=== PATIENT | female | born 1940 | race Caucasian/White ===

== ENCOUNTER 2017-08-29 16:24 | Emergency (ER) | payer MEDICARE, BC ==
[2017-08-29 16:56] VITALS: BP 136/69
--- NOTE | 2017-08-29 17:42 | RAD ---
INDICATION: RIGHT hand pain post fall. COMPARISON: No relevant prior exams available on the [facility] PACS for comparison. TECHNIQUE: AP, lateral, and oblique views RIGHT hand. REPORT: Oblique fracture through the proximal metaphysis of the fifth metacarpal with one cortex width ulnar dorsal displacement. Negative for additional fracture. Bone density appears decreased throughout. 0.4 cm degenerative cyst at the radial aspect of the lunate. Polyarticular osteoarthritis most marked at the distal interphalangeal joints where it is severe. Diffuse soft tissue swelling. IMPRESSION: #. Nonarticular fracture proximal metaphysis fifth metacarpal. #. Osteoarthritis. #. Decreased bone density.
--- NOTE | 2017-08-29 19:04 | UC ---
Upper Extremity HPI - HPI Summary HPI Summary: Patient is a 76-year-old otherwise healthy female presenting to the with daughter after a fall to her right side with a possible FOOSH injury as well as an abrasion to the right eye. She denies loss of consciousness or headache at this time. She is concerned over right lateral hand pain. There is slight ecchymosis to the right fifth metacarpal. Denies other injuries or concerns. - History of Current Complaint Chief Complaint: UCTrauma Stated Complaint: HAND INJURY Time Seen by Provider: 08/29/17 17:07 Hx Obtained From: Patient Hx Last Menstrual Period: na ?: No Onset/Duration: Sudden Onset Severity Initially: Moderate Severity Currently: Moderate Pain Intensity: 4 Pain Scale Used: Adult Non Verbal Alleviating Factor(s): Nothing Associated Signs And Symptoms: Positive: Swelling, Bruising Related History: Dominant Hand Right - Allergies/Home Medications Allergies/Adverse Reactions: Allergies Allergy/AdvReac Type Severity Reaction Status Date / Time bee venom protein (honey bee) Allergy Severe respriatory Verified 08/29/17 17:02 hydromorphone [From Dilaudid] Allergy Severe Anaphylatic Verified 08/29/17 17:02 Shock pentazocine [From Talwin] Allergy Severe Hallucinati Verified 08/29/17 17:02 ons Sulfa (Sulfonamide Allergy Severe respiratory Verified 08/29/17 17:02 Antibiotics) Adhesive Tape [Silk Tape] Allergy Intermediate Rash Verified 08/29/17 17:02 adhesive tape Allergy Intermediate Rash Verified 08/29/17 17:02 ciprofloxacin [From Cipro] Allergy Intermediate Rash Verified 08/29/17 17:02 codeine Allergy Intermediate Blisters Verified 08/29/17 17:02 latex Allergy Intermediate Rash Verified 08/29/17 17:02 nabumetone [From Relafen] Allergy Intermediate Bleeding Verified 08/29/17 17:02 nicotine Allergy Intermediate unknow Verified 08/29/17 17:02 Opioids - Morphine Analogues Allergy Intermediate Rash Verified 08/29/17 17:02 Penicillins Allergy Intermediate Hives Verified 08/29/17 17:02 nalidixic acid [From NegGram] Allergy Vomiting Verified 08/29/17 17:02 succinylcholine Allergy blood Verified 08/29/17 17:02 [From Anectine] pressure Home Medications: Home Medications Aspirin [Adult Low Dose Aspirin EC] 81 mg PO DAILY WITH MEAL 08/29/17 [History Confirmed 08/29/17] Dicyclomine HCl 10 mg PO BID 08/29/17 [History Confirmed 08/29/17] Estradiol 0.025 MG PATCH (NF) 1 patch 08/29/17 [History] Metoprolol Adler/Hydrochlorothiaz [Metoprolol Succinate ER/H 25-12.5 mg] 12.5 tab PO DAILY WITH MEAL 08/29/17 [History Confirmed 08/29/17] Pantoprazole Sodium 40 mg PO DAILY WITH MEAL 08/29/17 [History Confirmed ] PMH/Surg Hx/FS Hx/Imm Hx Previously Healthy: Yes - Surgical History Surgical History: Yes Surgery Procedure, Year, and Place: angioplasty. partial colon - Family History Known Family History: Positive: Cardiac Disease - Social History Occupation: Unemployed Lives: With Family Alcohol Use: None Substance Use Type: None Smoking Status (MU): Former Smoker Length of Time of Smoking/Using Tobacco: 5 years When Did the Patient Quit Smoking/Using Tobacco: 35 years Review of Systems Constitutional: Negative Skin: Bruising Eyes: Negative Respiratory: Negative Cardiovascular: Negative Motor: Negative Neurovascular: Negative Musculoskeletal: Arthralgia Neurological: Negative Is Patient Immunocompromised?: No All Other Systems Reviewed And Are Negative: Yes Physical Exam Triage Information Reviewed: Yes Appearance: Well-Appearing, Well-Nourished Vital Signs: Initial Vital Signs Temp 98.7 F 08/29/17 16:48 Pulse 63 08/29/17 16:48 Resp 20 08/29/17 16:48 BP 136/69 08/29/17 16:48 Pulse Ox 99 08/29/17 16:48 Vital Signs Reviewed: Yes Eye Exam: Normal Neck: Positive: Supple Respiratory Exam: Normal Respiratory: Positive: Chest non-tender Cardiovascular Exam: Normal Musculoskeletal: Positive: ROM Limited @ - d/t pain to the R MCP joints Psychological: Positive: Normal Response To Family Skin Exam: Normal Procedures - Splinting Right Upper Extremity Hand-Made Type: orthoglass Splint: ulnar - gutter Pre-Proc Neuro Vasc Exam: normal Post-Proc Neuro Vasc Exam: normal Upper Extremity Course/Dx - Course Course Of Treatment: During the course of treatment, the patient's evaluated for right hand pain after a FOOSH injury. X-ray obtained which shows a: IMPRESSION: #. Nonarticular fracture proximal metaphysis fifth metacarpal. #. Osteoarthritis. #. Decreased bone density. Ulnar gutter splint placed. She will follow-up with her orthopedist in [place]. I have also given her follow-up to our orthopedist. Abrasions to the right eyebrow cleansed well and bandage applied. - Differential Dx/Diagnosis Differential Diagnosis/HQI/PQRI: Fracture (Closed), Strain Provider Diagnoses: Fifth metacarpal fx Discharge - Sign-Out/Discharge Documenting (check all that apply): Patient Departure - Discharge Plan Condition: Stable Disposition: HOME Patient Education Materials: Hand Fracture (ED) Referrals: Blas Stanford MD [Primary Care Provider] - Leola Alarcon MD [Medical Doctor] - Additional Instructions: Please follow up with ortho Keep the area dry Splint is temporary until follow up - Billing Disposition and Condition Condition: STABLE Disposition: Home Attestation Statement User Type: Provider - I was available for consult. This patient was seen by the ALYSSA. The patient was not presented to, seen by, or examined by me. -Shahram
== END 2017-08-29 18:26 | disposition home or self-care (01) ==
LOC: UCEAST 16:24
DX: S62.306A Unspecified fracture of fifth metacarpal bone, right hand, initial encounter for closed fracture (principal); S00.211A Abrasion of right eyelid and periocular area, initial encounter; Z91.030 Bee allergy status; Z88.5 Allergy status to narcotic agent; Z88.2 Allergy status to sulfonamides; Z91.09 Other allergy status, other than to drugs and biological substances; Z88.1 Allergy status to other antibiotic agents; Z88.8 Allergy status to other drugs, medicaments and biological substances; Z91.040 Latex allergy status; Z88.6 Allergy status to analgesic agent; Z95.5 Presence of coronary angioplasty implant and graft; Z87.891 Personal history of nicotine dependence; Z79.4 Long term (current) use of insulin; W19.XXXA Unspecified fall, initial encounter; Y92.9 Unspecified place or not applicable
CPT/HCPCS: 99212; G0463

== ENCOUNTER 2017-09-18 11:53 | Day surgery (SDC) | payer MEDICARE, BC ==
[~2017-09-18 11:53] MED LIST: Acetaminophen TAB* 325 MG PO PRN; Buffered Lidocaine 0.9% SYRIN* 5 ML/SYR SYRINGE INTRADERM ONE
[2017-09-18] MEDS ORDERED: Midazolam* 1 MG/ML 2 ML VIAL (2 MG) ONE (13:29)
[2017-09-18 14:16] VITALS: BP 121/56
[2017-09-18] MEDS ORDERED: Povidone Iodine 5% OPTH* 30 ML BTL ONE (14:31)
[2017-09-18] MEDS ORDERED: Phenylephrine 2.5% OPTH.SOL* 2 ML BTL ONE (14:31)
[2017-09-18] MEDS ORDERED: Lidocaine 1%* 5 ML VIAL ONE (14:31)
[2017-09-18] MEDS ORDERED: acetaZOLAMIDE TAB* 250 MG ONE (14:31)
[2017-09-18] MEDS ORDERED: Proparacaine 0.5% OPHTH.SOL* 15 ML BTL ONE (14:31)
[2017-09-18] MEDS ORDERED: Ketorolac 0.5% OPHTH (NF) 0.5 % 5 ML BTL ONE (14:31)
[2017-09-18] MEDS ORDERED: Neomycin/Polymy/Dex OPTH.SUSP* MAXITROL 0.1% 5 ML ONE (14:31)
[2017-09-18] MEDS ORDERED: Lidocaine 2% EPI 1:200000 MPF*10-20 ML VIAL ONE (14:31)
[2017-09-18] MEDS ORDERED: Cyclopentolate 1% OPTH.SOL* 2 ML BTL ONE (14:31)
--- NOTE | 2017-09-18 16:30 | OP ---
DATE OF OPERATION: 09/18/2017 - [facility] DATE OF : 1940. SURGEON: Ankur Rider M.D. PREOPERATIVE DIAGNOSIS: Cataract right eye. POSTOPERATIVE DIAGNOSIS: Cataract right eye. OPERATIVE PROCEDURE: Extracapsular cataract extraction with intraocular lens implant right eye. DESCRIPTION OF PROCEDURE: The patient was brought to the operating room after being given 1/2% Alcaine with epinephrine drops in the preoperative area. The eye was prepped and draped in the usual sterile fashion. Sterile drape and eyelid speculum were placed. Again, topical 1/2% Alcaine with epinephrine was given. A paracentesis incision was made at the 9 o'clock position with the No.75 blade. Clear cornea incision 2.2 x 2.2-mm was created at the 12 o'clock position starting at the anterior limbus using the 2.2-mm keratome. The anterior chamber was irrigated with 0.4 mL of 1% non-preservative intracameral lidocaine and filled with DisCoVisc. A capsulorrhexis was completed using the cystotome and the Utrata forceps. Hydrodissection was performed with balanced salt solution. The lens nucleus was removed with the Phacoemulsification handpiece without incident. Cortex was removed with the irrigation-aspiration handpiece. The capsular bag was re-inflated using DisCoVisc and an [id number] implant was inserted with the shooter. The irrigation-aspiration handpiece was used to remove all residual DisCoVisc. The eye was refilled with balanced salt solution and the wound checked and found to be watertight. Topical Maxitrol drops were given. [id number]/[facility] #: [id number] [facility] CENTERNoé
== END 2017-09-18 14:24 | disposition home or self-care (01) ==
LOC: OREAST 11:53
PROVIDERS: ATTEND Specialist
DX: H25.811 Combined forms of age-related cataract, right eye (principal); Z87.891 Personal history of nicotine dependence; Z88.0 Allergy status to penicillin; Z88.1 Allergy status to other antibiotic agents; K21.9 Gastro-esophageal reflux disease without esophagitis; Z85.828 Personal history of other malignant neoplasm of skin; I25.10 Atherosclerotic heart disease of native coronary artery without angina pectoris; J45.909 Unspecified asthma, uncomplicated; N18.9 Chronic kidney disease, unspecified
CPT/HCPCS: A9270-GY; J2250; V2632

== ENCOUNTER 2017-09-25 10:06 | Day surgery (SDC) | payer MEDICARE, BC ==
[~2017-09-25 10:06] MED LIST changes: +Midazolam* 1 MG/ML 5 ML VIAL (5 MG) ONE
[2017-09-25 12:15] VITALS: BP 113/79
[2017-09-25] MEDS ORDERED: Lidocaine 2% EPI 1:200000 MPF*10-20 ML VIAL ONE (14:31)
[2017-09-25] MEDS ORDERED: Lidocaine 1%* 5 ML VIAL ONE (14:31)
[2017-09-25] MEDS ORDERED: Cyclopentolate 1% OPTH.SOL* 2 ML BTL ONE (14:31)
[2017-09-25] MEDS ORDERED: Ketorolac 0.5% OPHTH (NF) 0.5 % 5 ML BTL ONE (14:32)
[2017-09-25] MEDS ORDERED: Phenylephrine 2.5% OPTH.SOL* 2 ML BTL ONE (14:32)
[2017-09-25] MEDS ORDERED: Proparacaine 0.5% OPHTH.SOL* 15 ML BTL ONE (14:32)
[2017-09-25] MEDS ORDERED: Neomycin/Polymy/Dex OPTH.SUSP* MAXITROL 0.1% 5 ML ONE (14:32)
[2017-09-25] MEDS ORDERED: Povidone Iodine 5% OPTH* 30 ML BTL ONE (14:32)
--- NOTE | 2017-09-26 10:34 | OP ---
OPERATIVE NOTE: DATE OF OPERATION: 09/25/17 - [facility] DATE OF : [birth year] SURGEON: Ankur Rider M.D. PREOPERATIVE DIAGNOSIS: Cataract left eye. POSTOPERATIVE DIAGNOSIS: Cataract left eye OPERATIVE PROCEDURE: Extracapsular cataract extraction with intraocular lens implant left eye. PROCEDURE: The patient was brought to the operating room after being given 1/2 % Alcaine with epinephrine drops in the preoperative area. The eye was prepped and draped in the usual sterile fashion. Sterile drape and eyelid speculum were placed. Again, topical 1/2% Alcaine with epinephrine was given. A paracentesis incision was made at the 3 o'clock position with the No.75 blade. Clear cornea incision 2.2 x 2.2-mm was created at the 6 o'clock position starting at the anterior limbus using the 2.2-mm keratome. The anterior chamber was irrigated with 0.4 mL of 1% non-preservative intracameral lidocaine and filled with DisCoVisc. A capsulorrhexis was completed using the cystotome and the Utrata forceps. Hydrodissection was performed with balanced salt solution. The lens nucleus was removed with the Phacoemulsification handpiece without incident. Cortex was removed with the irrigation-aspiration handpiece. The capsular bag was re-inflated using DisCoVisc and an [id number] implant was inserted with the shooter. The irrigation-aspiration handpiece was used to remove all residual DisCoVisc. The eye was refilled with balanced salt solution and the wound checked and found to be watertight. Topical Maxitrol drops were given. [id number]/[facility] #: [id number] MTDD
== END 2017-09-25 12:19 | disposition home or self-care (01) ==
LOC: OREAST 10:06
PROVIDERS: ATTEND Specialist
DX: H25.812 Combined forms of age-related cataract, left eye (principal); Z85.828 Personal history of other malignant neoplasm of skin; Z87.891 Personal history of nicotine dependence; J45.909 Unspecified asthma, uncomplicated; I25.10 Atherosclerotic heart disease of native coronary artery without angina pectoris; K21.9 Gastro-esophageal reflux disease without esophagitis
CPT/HCPCS: A9270-GY; J2250; V2632

== ENCOUNTER 2017-11-17 10:31 | Inpatient (IN) | payer MEDICARE, BC ==
[2017-11-17] MEDS ORDERED: NS 0.9% 1000 ML* 1,000 ML IV ONE (10:49)
--- NOTE | 2017-11-17 11:25 | ED ---
Dizziness - HPI Summary HPI Summary: The pt is a 76 y.o female presenting to the [facility] with a chief complaint of dizziness. The pt states that she was unable to get out of bed and sit upright without having the symptoms of dizziness occur. The dizziness is not reported as room spinning but more as a loss of control. Onset of the symptoms was 1400 yesterday. She sates that she is currently unable to ambulate to due the severity of the dizziness. Pt also reports of MOTT, fatigue and nausea. Pt denies vision symptoms. The patient rates the pain as 0/10 in severity. Symptoms alleviated by nothing. Symptoms aggravated by position and movement. Allergies noted and reported. - History Of Current Complaint Chief Complaint: EDDizziness Stated Complaint: DIZZINESS Time Seen by Provider: 11/17/17 10:50 Hx Obtained From: Patient Onset/Duration: Still Present Severity Currently: None Character: Dizzy - "Loss of control" Aggravating Factor(s): Supine To Erect, Other - Movement Alleviating Factor(s): Nothing Associated Signs And Symptoms: Positive: Nausea, Other: - MOTT and fatigue. Negative: Visual Changes - Allergies/Home Medications Allergies/Adverse Reactions: Allergies Allergy/AdvReac Type Severity Reaction Status Date / Time bee venom protein (honey bee) Allergy Severe Difficulty Verified 11/17/17 10:45 Breathing betamethasone Allergy Severe Blisters Verified 11/17/17 10:45 [From Diprolene] cefdinir Allergy Severe Unknown Verified 11/17/17 10:45 Reaction Details codeine Allergy Severe Blisters Verified 11/17/17 10:45 hydromorphone [From Dilaudid] Allergy Severe Anaphylatic Verified 11/17/17 10:45 Shock pentazocine [From Talwin] Allergy Severe Hallucinati Verified 11/17/17 10:45 ons propylene glycol Allergy Severe Blisters Verified 11/17/17 10:45 [From Diprolene] Sulfa (Sulfonamide Allergy Severe Hives Verified 11/17/17 10:45 Antibiotics) Adhesive Tape [Silk Tape] Allergy Intermediate Rash Verified 11/17/17 10:45 adhesive tape Allergy Intermediate Rash Verified 11/17/17 10:45 ciprofloxacin [From Cipro] Allergy Intermediate Rash Verified 11/17/17 10:45 erythromycin base Allergy Intermediate See Comment Verified 11/17/17 10:45 latex Allergy Intermediate Rash Verified 11/17/17 10:45 nabumetone [From Relafen] Allergy Intermediate Bleeding Verified 11/17/17 10:45 nicotine Allergy Intermediate Unknown Verified 11/17/17 10:45 Reaction Details Opioids - Morphine Analogues Allergy Intermediate Rash Verified 11/17/17 10:45 Penicillins Allergy Intermediate Hives Verified 11/17/17 10:45 succinylcholine Allergy Intermediate blood Verified 11/17/17 10:45 [From Anectine] pressure drop nalidixic acid [From NegGram] AdvReac Severe Vomiting Verified 11/17/17 10:45 ondansetron [From Zofran] AdvReac Severe Nausea And Verified 11/17/17 10:45 Vomiting meclizine AdvReac Intermediate Nausea Verified 11/17/17 10:45 [id number]-Afx-Fnp Reductase AdvReac GI Upset Verified 11/17/17 10:45 Inhibitor Home Medications: Home Medications EPINEPHrine [Epipen 2-Stevie] 0.3 mg IM ONCE PRN 11/17/17 [History Confirmed ] PMH/Surg Hx/FS Hx/Imm Hx Endocrine/Hematology History: Denies: Hx Diabetes, Hx Thyroid Disease Cardiovascular History: Reports: Hx Coronary Artery Disease - Angioplasty-years ago-[place], Hx Hypertension Denies: Other Cardiovascular Problems/Disorders Respiratory History: Denies: Hx Asthma, Hx Chronic Obstructive Pulmonary Disease (COPD), Other Respiratory Problems/Disorders GI History: Reports: Hx Gastroesophageal Reflux Disease, Hx Irritable Bowel, Hx Ulcer - history duodenal ulcers, Other GI Disorders - esophageal rings stretched , diverticulosis, history of diverticulitis Denies: Hx Hiatal Hernia History: Reports: Hx Kidney Infection - had prior to partial kidney removal- , Other Problems/Disorders - 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., UTIs Musculoskeletal History: Reports: Hx Arthritis - thumbs, Hx Bursitis - history of, none recent, Other Musculoskeletal History - Fell 08/28-fractured right hand- hard brace on Sensory History: Reports: Hx Cataracts - Bilateral, Hx Contacts or Glasses - glasses Denies: Hx Glaucoma, Hx Hearing Aid Opthamlomology History: Reports: Hx Cataracts - Bilateral, Hx Contacts or Glasses - glasses Denies: Hx Glaucoma Neurological History: Reports: Hx Migraine - history of since hysterectomy, none recent Denies: Other Neuro Impairments/Disorders - Surgical History Surgery Procedure, Year, and Place: Angioplasty-[place] 2007. Partial colectomy -[id number]. Partial Left Kidney removed-1970s Hx Anesthesia Reactions: Yes - versed, demerol and lidocaine ok per pt Infectious Disease History: No Infectious Disease History: Denies: Hx Hepatitis, Hx Human Immunodeficiency Virus (HIV), Traveled Outside the [place] in Last 30 Days - Family History Known Family History: Positive: Cardiac Disease Family History: Cataract - Mother - Social History Alcohol Use: None Substance Use Type: Reports: None Smoking Status (MU): Former Smoker Length of Time of Smoking/Using Tobacco: 5 years Review of Systems Positive: Fatigue Eyes: Negative ENT: Negative Cardiovascular: Negative Respiratory: Negative Positive: Nausea Genitourinary: Negative Musculoskeletal: Negative Skin: Negative Neurological: Other - Dizziness Positive: Headache Psychological: Normal All Other Systems Reviewed And Are Negative: Yes Physical Exam - Summary Physical Exam Summary: Appearance: The patient is well-nourished in no acute distress and in no acute pain. Skin: The skin is warm and dry and skin color reflects adequate perfusion. HEENT: The head is normocephalic and atraumatic. The pupils are equal and reactive. The conjunctivae are clear and without drainage. Nares are patent and without drainage. Mouth reveals moist mucous membranes and the throat is without erythema and exudate. The external ears are intact. The ear canals are patent and without drainage. The tympanic membranes are intact. Neck: The neck is supple with full range of motion and non-tender. There are no carotid bruits. There is no neck vein distension. Respiratory: Chest is non-tender. Lungs are clear to auscultation and breath sounds are symmetrical and equal. Cardiovascular: Heart is regular rate and rhythm. There is no murmur or rub auscultated. There is no peripheral edema and pulses are symmetrical and equal. Abdomen: The abdomen is soft and non-tender. There are normal bowel sounds heard in all four quadrants and there is no organomegaly palpated. Musculoskeletal: There is no back tenderness noted. Extremities are non-tender with full range of motion. There is good capillary refill. There is no peripheral edema or calf tenderness elicited. Neurological: Patient is alert and oriented to person, place and time. The patient has symmetrical motor strength in all four extremities. Cranial nerves are grossly intact. Deep tendon reflexes are symmetrical and equal in all four extremities. No nystagmus; She had mild high lateral dysmetria. Psychiatric: The patient has an appropriate affect and does not exhibit any anxiety or depression Triage Information Reviewed: Yes Vital Signs On Initial Exam: Initial Vitals Temp Pulse Resp BP Pulse Ox 97.0 F 56 17 169/76 98 11/17/17 10:34 11/17/17 10:34 11/17/17 10:34 11/17/17 10:34 11/17/17 10:34 Vital Signs Reviewed: Yes Diagnostics - Vital Signs Vital Signs Temp Pulse Resp BP Pulse Ox 11/17/17 10:34 97.0 F 56 17 169/76 98 - Laboratory Result Diagrams: 11/17/17 11:41 11/17/17 11:41 Lab Statement: Any lab studies that have been ordered have been reviewed, and results considered in the medical decision making process. - CT Head CTA CT Interpretation Completed By: Radiologist - Head CTA reveals: NECK ANGIOGRAM IMPRESSION: Negative for pathology of the carotid or vertebral arteries. HEAD ANGIOGRAM IMPRESSION: Normal variation without pathologic finding of the central intracranial arterial vasculature. As per radiologist report. The ED Physician has reviewed this radiology report. - EKG 1053 Cardiac Rate: Bradycardia - 50 bpm EKG Interpretation: Normal ST, No ectopy, No STEMI at 1053 Dizzy Course/Dx - Course Course Of Treatment: Ms. Michaels presented with about 21 hours of dizziness and being off balance. She she specifically says the room is not spinning but she just doesn't trust herself walking and and she is concerned because her arms don 't seem to follow her commands well either. She has no tinnitus. She has no headache. She has no visual changes. On exam she has no nystagmus. She has hesitancy when performing [id number] and [id number]. Initial labs, CT of the brain and CTA of the head and neck are negative. I spoke with Dr. Henry who recommended admission for further workup. She will need an MRI scan. - Diagnoses Provider Diagnoses: CVA (cerebral vascular accident) Discharge - Sign-Out/Discharge Documenting (check all that apply): Patient Departure - Admission to [facility] [place] - Discharge Plan Condition: Stable Disposition: ADMITTED TO [facility] - Billing Disposition and Condition Condition: STABLE Disposition: Admitted to [facility] - Attestation Statements Document Initiated by Scribe: Yes Documenting Scribe: Nazario Bourne Provider For Whom Scribe is Documenting (Include Credential): Dr. Magan De La Cruz Scribe Attestation: I, Nazario Bourne, scribed for Dr. Magan De La Cruz on 11/17/17 at 1859. Scribe Documentation Reviewed: Yes Provider Attestation: The documentation as recorded by the Nazario crain accurately reflects the service I personally performed and the decisions made by me, Dr. Magan De La Cruz
[2017-11-17 12:00] LABS: ABS Basophils 0 10^3/ul (0-0.2); ABS Eosinophils 0 10^3/ul (0-0.6); ABS Lymphocytes 0.8 10^3/ul (1.0-4.8); ABS Monocytes 0.3 10^3/ul (0-0.8); ABS Neutrophils 4.9 10^3/ul (1.5-7.7); ABS Nucleated RBC 0 10^3/ul; Eosinophil % 0.3 % (0-6); Hematocrit 40 % (35-47); Hemoglobin 13.4 g/dl (12.0-16.0); Lymphocyte % 12.7 % (25-47); Mean Corpuscular HGB Conc 34 g/dl (31-36); Mean Corpuscular Hemoglobin 31 pg (27-31); Mean Corpuscular Volume 92 fL (80-97); Mean Platelet Volume 7.9 um3 (7.4-10.4); Nucleated Red Blood Cells % 0; Platelet Count 182 10^3/ul (150-450); Red Blood Count 4.28 10^6/ul (4.00-5.40); Red Cell Distribution Width 14 % (10.5-15)
[2017-11-17 12:10] LABS: EGFR Non-African American 74.4 (>60)
[2017-11-17] MEDS ORDERED: Iodixanol* (CONTRAST) 320 MG/ML 100 ML SDV IV ONE (12:30)
[2017-11-17 13:18] LABS: Urine Appearance Clear; Urine Blood Negative (Negative); Urine Color Yellow; Urine Ketones Trace (Negative); Urine Protein Negative (Negative); Urine Urobilinogen Negative (Negative)
--- NOTE | 2017-11-17 14:07 | RAD ---
INDICATION: Vertigo. COMPARISON: No relevant prior exams available on the [facility] PACS for comparison. TECHNIQUE: Multidetector CT images were obtained from the aortic arch to the vertex of the head with 80 mL Visipaque 320 IV contrast. Arterial phase of enhancement. Multiplanar reformation including maximum intensity projection. 3-D arterial volume rendering. Stenosis estimations based on denominator of distal arterial diameter. NECK ANGIOGRAM REPORT: Mild bilateral apical pleural-parenchymal scarring noted. Normal variant common origin of the RIGHT brachiocephalic and LEFT common carotid arteries from the aortic arch. Negative for aortic arch branch vessel ostial stenosis. No atherosclerotic plaque evident at the carotid arteries. Negative for stenosis, occlusion, dissection, or aneurysm of the common or internal carotid arteries. Patent codominant vertebral arteries without abnormality. Unremarkable cervical spine. NECK ANGIOGRAM IMPRESSION: Negative for pathology of the carotid or vertebral arteries. HEAD ANGIOGRAM REPORT: Unremarkable patent intracranial internal carotid arteries and M1 and M2 segments of the middle cerebral arteries as well as the M1 and M2 segments of the anterior cerebral arteries. No definitive anterior communicating artery visualized. Unremarkable basilar artery and cerebellar artery origins. Patent posterior cerebral arteries are supplied primarily by the posterior circulation. Small patent RIGHT posterior communicating artery visualized. The LEFT communicating artery is hypoplastic or absent, a normal variant. No intracranial aneurysms visualized. No vascular malformation evident. Normal opacification of the dominant dural venous sinuses. HEAD ANGIOGRAM IMPRESSION: Normal variation without pathologic finding of the central intracranial arterial vasculature. CPT II: CPT II Codes: 3100F
[2017-11-17] MEDS ORDERED: Diazepam TAB(*) 5 MG PO PRN (16:21)
[2017-11-17] MEDS: Metoprolol Tartrate TAB* 25 MG PO SCH (21:23)
[2017-11-17] MEDS: Dicyclomine CAP* 10 MG PO SCH (21:23)
[2017-11-17] MEDS: Heparin VIAL(*) 5000 UNITS/ML VIAL (FIVE THOUSAND) SUBCUT SCH (21:30)
--- NOTE | 2017-11-17 22:22 | HP ---
CC: Dr. Stanford; Dr. Zeng * HISTORY AND PHYSICAL: DATE OF ADMISSION: 11/17/17 PRIMARY CARE PROVIDER: Dr. Stanford. DUCTFIXING PLUMBER: Dr. Zeng. CHIEF COMPLAINT: Dizziness. HISTORY OF PRESENT ILLNESS: Ms. Michaels is a 76-year-old female who has a history of coronary artery disease, migraine, asthma, psoriasis, GERD and IBS, who presented to the emergency room with complaints of severe dizziness. The patient states that yesterday afternoon she began to feel slight sensation of dizziness. She thought maybe it was related to allergies and sinus pressure. She took a Tylenol Sinus and went upstairs to lie down. She states that she took a nap. When her was watching a baseball game last evening, she went upstairs to watch movies in bed. She states she fell asleep. When she woke up on the morning of 11/17/17 and tried to get out of bed around 8:30 to 9 o'clock in the morning, she noted severe unsteadiness. She states that when she got upright she felt as if she could not place her arms in a correct position nor did she feel like she had control over her body. She states that she essentially fell backwards onto the bed. She tried to get up again and this time with her ; however, still was unable to do so and at that point he called the ambulance for transportation to the emergency room. The patient states that she has never had anything like this in the past. She denies any headache. She denies any sudden change of vision. PAST MEDICAL HISTORY: 1. OA. 2. Coronary artery disease, status post angioplasty x2. 3. Migraine. 4. Asthma. 5. Psoriasis. 6. GERD. 7. IBS. PAST SURGICAL HISTORY: 1. Bartholin cyst excision. 2. Left partial nephrectomy. 3. Bilateral cataract extraction. 4. Bilateral carpal tunnel release. 5. Hysterectomy. 6. Partial colectomy. MEDICATIONS: 1. Protonix 40 mg p.o. daily. 2. Metoprolol tartrate 12.5 mg p.o. b.i.d. (the patient was supposed to switch to diltiazem 30 mg p.o. b.i.d., though she states her stomach was not ready for this change). 3. Estradiol 0.025 mg patch topically weekly. 4. Dicyclomine 10 mg p.o. b.i.d. 5. Aspirin 81 mg p.o. daily. 6. EpiPen 0.3 mg IM once as needed for allergic reaction. ALLERGIES: 1. BEES. 2. BETAMETHASONE. 3. CEFDINIR. 4. CODEINE. 5. DILAUDID. 6. TALWIN. 7. DIPROLENE. 8. SULFA. 9. ADHESIVE TAPE. 10. CIPRO. 11. ERYTHROMYCIN. 12. LATEX. 13. NABUMETONE. 14. NICOTINE. 15. OPIOIDS. 16. PENICILLIN. 17. SUCCINYLCHOLINE. 18. NEGGRAM. 19. ZOFRAN. 20. MECLIZINE. 21. STATIN. FAMILY HISTORY: Mom at the age of 70 of CHF. Dad of unknown causes, she in fact does not know anything about his medical history. SOCIAL HISTORY: The patient is a former smoker, she quit in 1984. She drinks alcohol rarely. 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 She is . She has 2 children. Her , Ankur, is her healthcare proxy. REVIEW OF SYSTEMS: A complete 11-system review of systems was obtained. Pertinent positives and negatives are as per HPI and in addition the patient does admit to chronic nausea that was no worse with the severe unsteadiness/ dizziness. She also admits to frequent diarrhea related to her IBS. The rest of the review of systems is negative. PHYSICAL EXAMINATION GENERAL: The patient is a well-developed, elderly female, seen lying flat on her back in the stretcher, in no acute distress. VITAL SIGNS: Blood pressure 145/76, pulse 53, respirations 14, temp 97.0, O2 sat 99% on room air. HEENT: Pupils are equal and round. There is evidence of prior cataract extraction. Extraocular muscles are intact. There is no nystagmus noted. Movement of the eyes while lying in a completely flat on her back position elicits no dizziness. Oropharynx is clear. Oral mucosa is moist. NECK: There is no submandibular, cervical, or supraclavicular adenopathy. Thyroid is not enlarged. No thyroid nodules noted. PULMONARY: Lungs are clear to auscultation bilaterally. CARDIAC: Normal S1, S2. Regular rate and rhythm. I do not appreciate any murmurs. There is no lower extremity edema. ABDOMEN: Bowel sounds are present. Abdomen is soft, nontender, nondistended. MUSCULOSKELETAL: There is no cyanosis or clubbing of the digits. There is full active range of motion of all 4 extremities. NEURO: In a flat on her back position, the patient has normal 5/5 strength in both upper and lower extremities. Sensation is intact to light touch throughout. Heel- rivera testing is smooth and symmetric bilaterally. With the head of the bed raised at 45 degrees, the patient does complain of dizziness. [id number] testing is intact and without any past pointing. When I lean the patient forward to listen to her back, her entire body sways, she ends up leaning towards the left and resting her head on my arm due to being unsteady. PSYCH: The patient is alert. She is oriented x3. Affect appears appropriate. SKIN: Warm and dry. There are no rashes. DIAGNOSTIC STUDIES/LAB DATA: WBC 6.0, hemoglobin 13.4, hematocrit 40, platelets 182. INR 1.0. Sodium 142, potassium 3.6, chloride 110, CO2 24, BUN 11, creatinine 0.76, glucose 91, lactic acid 1, calcium 8.4, magnesium 1.7. Bilirubin 0.7, AST 16, ALT 11, alk phos 54. Troponin 0. CRP 2.36. Albumin 3.8. TSH 0.68. Urinalysis reveals specific gravity of 1.010 and otherwise negative for signs of infection. EKG reveals sinus bradycardia with PAC and no acute ST-T wave abnormalities. CTA head reveals normal variation without pathologic finding of the central intracranial arterial vasculature. CTA neck negative for pathology of the carotid or vertebral arteries. ASSESSMENT AND PLAN: Ms. Michaels is a 76-year-old female, who presents today with complaints of a sudden of severe dizziness, which was described more as unsteadiness when in a semi-upright position. 1. Dizziness. My suspicion is this is not a cerebrovascular accident as the patient is asymptomatic while lying completely flat, but becomes symptomatic with the head somewhat elevated or completely upright. I question benign positional vertigo versus a vestibular neuritis. The patient will have p.r.n. Valium for dizziness. MRI has been ordered for tomorrow to formally rule out stroke. If the patient is still symptomatic tomorrow, consultation with Neurology is recommended. 3. Coronary artery disease. The patient will be maintained on her usual dose of aspirin and metoprolol. 4. Irritable bowel syndrome. Continue dicyclomine. 5. DVT prophylaxis: According to the Adult Thrombosis Prophylaxis Risk Factor Assessment Guide, the patient has a total risk factor score of 2 making her moderate risk. She will be placed on heparin 5000 units subcutaneous q.12 hours. 6. Code status is full. TIME SPENT: Sixty-five minutes was spent admitting this patient. [id number]/CPS #: [id number] GAR[facility]
[2017-11-18] MEDS: Dicyclomine CAP* 10 MG PO SCH ×2 (09:38→20:44)
[2017-11-18] MEDS: Omeprazole CAP* 20 MG PO SCH (09:39)
[2017-11-18] MEDS: Heparin VIAL(*) 5000 UNITS/ML VIAL (FIVE THOUSAND) SUBCUT SCH ×2 (09:39→20:44)
[2017-11-18] MEDS: Aspirin EC TAB* 81 MG TAB.EC PO SCH (09:39)
[2017-11-18] MEDS ORDERED: Magnesium Sulfate IV* 3 GM in NS 0.9% 100 ML* 100 ML IVPB ONE (11:00)
[2017-11-18] MEDS ORDERED: PROCHLORPERAZINE INJ 5 MG/ML 2 ML VIAL IV PRN (11:21)
[2017-11-18] MEDS: Metoprolol Tartrate TAB* 25 MG PO SCH (11:39)
--- NOTE | 2017-11-18 14:19 | RAD ---
HISTORY: severe dizziness, ataxia COMPARISONS: November 17, 2017 CT TECHNIQUE: The following sequences were obtained of the head: Sagittal T1-weighted images, axial T2-weighted images, axial FLAIR images, axial susceptibility weighted images, axial T1-weighted images. Additionally, axial diffusion-weighted images were obtained with calculated apparent diffusion coefficients. FINDINGS: HEMORRHAGE/INFARCT: There is no hemorrhage or acute infarct. MASSES/SHIFT: There is no mass or shift. EXTRA-AXIAL SPACES/MENINGES: There are no extra-axial fluid collections. SULCI AND VENTRICLES: The sulci and ventricles are normal in size and position for the patient's stated age. CEREBRUM: There are no focal parenchymal abnormalities. BRAINSTEM: There are no focal parenchymal abnormalities. CEREBELLUM: There are no focal parenchymal abnormalities. The cerebellar tonsils are normal in size and position. SELLA: The sella is normal. PINEAL: The pineal region is clear. CP ANGLE/TEMPORAL BONES: The labyrinthine structures are grossly normal. VESSELS: Normal flow-voids are noted within the visualized vertebral vasculature. DIFFUSION ABNORMALITIES: There are no diffusion abnormalities. PARANASAL SINUSES/MASTOIDS: The paranasal sinuses are clear. ORBITS: The orbits are unremarkable. BONES AND SOFT TISSUE: No bone or soft tissue abnormalities are noted. OTHER: None IMPRESSION: UNREMARKABLE MRI OF THE BRAIN. THERE IS NO RESTRICTED DIFFUSION TO SUGGEST ACUTE INFARCT.
--- NOTE | 2017-11-18 17:06 | PN ---
Subjective Date of Service: 11/18/17 Interval History: Patient is feeling persistently mildly dizzy at rest and has not noticed any improvement in dizziness when sitting up. Patient has been having intermittent nausea and headache with sitting up. Patient has chronic gastrointestinal upset which has been persisting. Patient denies CP, SOB, dysuria, palpitations, or other pain. Patient conveyed that she had a fall within the last few months head trauma without any prodromal symptoms. Patient has been having a recent stuffy nose and sinus pressure which she attributed to allergies. Family History: Unchanged from Admission Social History: Unchanged from Admission Past Medical History: Unchanged from Admission Objective Active Medications: Aspirin (Aspirin Ec Tab*) 81 mg PO QAM [facility] Last Admin: 11/18/17 09:39 Dose: 81 mg Diazepam (Valium Tab(*)) 2.5 mg PO Q8H PRN PRN Reason: dizziness Dicyclomine HCl (Bentyl Cap*) 10 mg PO BID [facility] Last Admin: 11/18/17 09:38 Dose: 10 mg Heparin Sodium (Porcine) (Heparin Vial(*)) 5,000 units SUBCUT Q12HR [facility] Last Admin: 11/18/17 09:39 Dose: 5,000 units Sodium Chloride (Ns 0.9% 1000 Ml*) 1,000 mls @ 100 mls/hr IV PER RATE [facility] Metoprolol Tartrate (Lopressor Tab*) 12.5 mg PO DAILY [facility] Omeprazole (Prilosec Cap*) 20 mg PO QAM [facility] Last Admin: 11/18/17 09:39 Dose: Not Given Prochlorperazine Edisylate (Compazine Inj*) 5 mg IV Q6H PRN PRN Reason: NAUSEA/VOMITING Vital Signs - 8 hr 11/18/17 11/18/17 11/18/17 09:38 11:15 16:32 Temperature 97.9 F Pulse Rate 62 61 Respiratory 16 18 Rate Blood Pressure 127/59 150/81 (mmHg) O2 Sat by Pulse 97 Oximetry 11/18/17 16:33 Temperature Pulse Rate 82 Respiratory Rate Blood Pressure 132/73 (mmHg) O2 Sat by Pulse Oximetry Oxygen Devices in Use Now: None Appearance: Patient is a 76yo female who appears younger than stated age and is sitting in the bed in [facility]. Eyes: No Scleral Icterus, PERRLA Ears/Nose/Mouth/Throat: NL Teeth, Lips, Gums, Clear Oropharnyx, Mucous Membranes Moist Neck: NL Appearance and Movements; NL JVP, Trachea Midline Respiratory: Symmetrical Chest Expansion and Respiratory Effort, Clear to Auscultation Cardiovascular: NL Sounds; No Murmurs; No JVD, RRR, No Edema Abdominal: NL Sounds; No Tenderness; No Distention, No Hepatosplenomegaly Lymphatic: No Cervical Adenopathy Extremities: No Edema, No Clubbing, Cyanosis Skin: No Rash or Ulcers, No Nodules or Sclerosis Neurological: Alert and Oriented x 3, NL Sensation, NL Muscle Strength and Tone , - - CN II-XII intact. Cerebellar testing performed without difficulty. No nystagmus on sitting up. Reflexes 2+ in biceps and pateller area. 1+ in achilles areas. Result Diagrams: 11/17/17 11:41 11/17/17 11:41 Assess/Plan/Problems-Billing Assessment: Patient is a 76yo female with a PMH for migraines, CAD, and recent syncope who prevents with severe positional dizziness to the point she is unable to walk with associated severe headache. - Patient Problems (1) Acute severe vertigo Current Visit: Yes Status: Acute Code(s): R42 - DIZZINESS AND GIDDINESS SNOMED Code(s): 460100989 Comment: - Severe positional vertigo present at a low level at all times but much worse with sitting and standing - Associated migraine which is consistent with previous history of migraine. - Recent URI/Allergy symptoms - MRI brain negative, CTA head and neck negative - Differential includes BPPV, Vestibular neuronitis, Vestibular migraine - Neuro consult pending and appreciated. - Slightly orthostatic, will decrease metoprolol and trial additional fluid - Echo to assess cardiac function as possible cause of vertigo (2) Migraine Current Visit: Yes Status: Acute Code(s): G43.909 - MIGRAINE, UNSP, NOT INTRACTABLE, WITHOUT STATUS MIGRAINOSUS SNOMED Code(s): 42826785 Comment: - Severe headache consistent with previous migraine - Multiple allergies, has had response to demerol and compazine before - Will trial this combination (3) IBS (irritable bowel syndrome) Current Visit: Yes Status: Acute Comment: - Persistent abdominal discomfort and nausea. - Continue Bentyl (4) Syncope Current Visit: Yes Status: Acute Code(s): R55 - SYNCOPE AND COLLAPSE SNOMED Code(s): 073705896 Comment: - Recent Syncope with no prodrome - No evalutation at time - Echo, Lipid profile and homeglobin A1c - Known CAD managed medically - Possible arrhythmia, continue tele and consider stress test inpatient or outpatient. (5) DVT prophylaxis Current Visit: Yes Status: Acute Code(s): ZOW4401 - SNOMED Code(s): 310243858 Comment: - Heparin SubQ (6) Full code status Current Visit: Yes Status: Acute Code(s): Z78.9 - OTHER SPECIFIED HEALTH STATUS SNOMED Code(s): 855022305 Status and Disposition: Inpatient.
[2017-11-18] MEDS ORDERED: Meperidine SYRINGE* 50 MG/ML IV ONE (17:11)
[2017-11-18] MEDS ORDERED: MEPERIDINE 50 MG PO ONE (17:17)
--- NOTE | 2017-11-18 17:26 | ECHO ---
Patient: RUBEN GARCIA [facility] Rec#: [id number] : 1940 Date: 11/18/2017 Age: 76y Height: 157 cm / 61.8 in Weight: 55 kg / 121.2 lbs Sex: F BSA: 1.5 Room#: [facility] Admit Date#: 11/17/2017 Type: Inpatient Referring: Nikolas Cervantes Reading: Zeke Stock MD Accounting Recruiter: Aria Staley RN RDCS CC: Blas Stanford MD Transthoracic Echocardiogram Indication: Syncope, dizziness BP: 126/66 HR: 59 Rhythm: Bradycardia Findings History: CAD, PCI x 2, migraines, asthma, GERD, former smoker Technical Comments: The study quality is fair. The study is technically limited due to the patient's smoking history. Left Ventricle: The left ventricular chamber size is normal. Global left ventricular wall motion and contractility are within normal limits. There is normal left ventricular systolic function. The estimated ejection fraction is 55-60%. There is no consistent Doppler evidence of clinically significant diastolic dysfunction. Left Atrium: The left atrial chamber size is normal. Right Ventricle: The right ventricular cavity size is normal. The right ventricular global systolic function is normal. Right Atrium: The right atrium is slightly dilated. Aortic Valve: The aortic valve is trileaflet. The aortic valve leaflets are mildly thickened. There is trace to mild aortic regurgitation. There is no evidence of aortic stenosis. Mitral Valve: The mitral valve leaflets are mildly thickened. There is mild mitral regurgitation. There is no evidence of mitral stenosis. Tricuspid Valve: The tricuspid valve leaflets are normal. There is mild to moderate tricuspid regurgitation. No pulmonary hypertension is noted. There is no tricuspid stenosis. Pulmonic Valve: The pulmonic valve appears normal. There is a trace pulmonic regurgitation. There is no pulmonic stenosis. Pericardium: There is no significant pericardial effusion. Aorta: There is no dilatation of the ascending aorta. There is no dilatation of the aortic arch. The aortic root is normal in size. Pulmonary Artery: The main pulmonary artery appears normal. Venous: The inferior vena cava appears normal in size. There is a greater than 50% respiratory change in the inferior vena cava dimension. Summary: There was not any prior study for comparison. Conclusions Global left ventricular wall motion and contractility are within normal limits. There is normal left ventricular systolic function. The estimated ejection fraction is 55-60%. The aortic valve leaflets are mildly thickened. There is trace to mild aortic regurgitation. There is mild mitral regurgitation. There is mild to moderate tricuspid regurgitation. No pulmonary hypertension is noted. There is no significant pericardial effusion. Measurements Name Value Normal Range RVIDd (AP) 2D 3.1 cm (0.9 - 2.6) RVDdMajor (2D) 3.1 cm (2.2 - 4.4) RAd ISD 4CH 5.2 cm (3.4 - 4.9) RA (A4C)W 3.7 cm (2.9 - 4.6) IVSd (2D) 0.9 cm (0.6 - 1) LVPWd (2D) 0.8 cm (0.6 - 1) LVIDd (2D) 3.7 cm (3.6 - 5.4) LVIDs (2D) 2.3 cm - LV FS (2D) 38 % (25 - 45) Aortic Annulus 1.8 cm (1.4 - 2.6) Ao root diameter (2D) 2.6 cm (2.1 - 3.5) Ascending Ao 3.4 cm (2.1 - 3.4) Aortic arch 2.4 cm (1.8 - 3.4) LA dimension (AP) 2D 3.2 cm (2.3 - 3.8) LAd ISD 4CH 4.7 cm (2.9 - 5.3) LA ISD 4CH W 3.3 cm (2.5 - 4.5) Name Value Normal Range LA ESV BP (A/L) index 24.4 ml/m2 - Name Value Normal Range MV E-wave Vmax 0.6 m/sec - MV deceleration time 303 msec - MV A-wave Vmax 0.65 m/sec - MV E:A ratio 0.9 ratio - LV septal e' Vmax 0.09 m/sec - LV lateral e' Vmax 0.09 m/sec - LV E:e' septal ratio 6.7 ratio - LV E:e' lateral ratio 6.7 ratio - Name Value Normal Range AV Vmax 1.3 m/sec - AV VTI 29 cm - AV peak gradient 7 mmHg - AV mean gradient 3 mmHg - LVOT Vmax 1 m/sec - LVOT VTI 22.1 cm - LVOT peak gradient 4 mmHg - LVOT mean gradient 2 mmHg - GLENIS Vmax 0.52 m/sec - Name Value Normal Range TR Vmax 2.5 m/sec - TR peak gradient 25 mmHg - RAP 3 mmHg - RVSP 28 mmHg - IVC diameter 1.5 cm - Name Value Normal Range PV Vmax 0.74 m/sec -
[2017-11-18] MEDS ORDERED: Meperidine Carpuject* 75 MG/ML CARPUJECT SYRINGE IV PRN (21:02)
[2017-11-18] MEDS: NS 0.9% 1000 ML* 1,000 ML IV SCH (22:16)
[2017-11-19 06:49] LABS: EGFR Non-African American 103.7 (>60)
[2017-11-19] MEDS ORDERED: Ketorolac INJ* 30 MG/ML 1 ML VIAL IV PUSH ONE (08:45)
[2017-11-19 09:01] LABS: ABS Basophils 0 10^3/ul (0-0.2); ABS Eosinophils 0 10^3/ul (0-0.6); ABS Lymphocytes 1.1 10^3/ul (1.0-4.8); ABS Monocytes 0.4 10^3/ul (0-0.8); ABS Neutrophils 3.1 10^3/ul (1.5-7.7); ABS Nucleated RBC 0 10^3/ul; Eosinophil % 0.6 % (0-6); Hematocrit 39 % (35-47); Hemoglobin 13.1 g/dl (12.0-16.0); Lymphocyte % 23.7 % (25-47); Mean Corpuscular HGB Conc 34 g/dl (31-36); Mean Corpuscular Hemoglobin 31 pg (27-31); Mean Corpuscular Volume 91 fL (80-97); Mean Platelet Volume 8.5 um3 (7.4-10.4); Nucleated Red Blood Cells % 0.1; Platelet Count 200 10^3/ul (150-450); Red Blood Count 4.22 10^6/ul (4.00-5.40); Red Cell Distribution Width 14 % (10.5-15); White Blood Count 4.8 10^3/ul (3.5-10.8)
[2017-11-19] MEDS: Metoprolol Tartrate TAB* 25 MG PO SCH (09:34)
[2017-11-19] MEDS: Dicyclomine CAP* 10 MG PO SCH ×2 (09:44→21:20)
[2017-11-19] MEDS: Heparin VIAL(*) 5000 UNITS/ML VIAL (FIVE THOUSAND) SUBCUT SCH ×2 (09:44→21:21)
[2017-11-19] MEDS: Omeprazole CAP* 20 MG PO SCH (09:44)
[2017-11-19] MEDS: NS 0.9% 1000 ML* 1,000 ML IV SCH ×2 (09:45→21:17)
[2017-11-19] MEDS: Aspirin EC TAB* 81 MG TAB.EC PO SCH (09:45)
--- NOTE | 2017-11-19 15:17 | PN ---
Subjective Date of Service: 11/19/17 Interval History: patient reports she continues to have vertigo and "spinning" when she lifts he head > 20 degrees off bed. No hx of vertigo in the past. She also has developed a migraine worsening over the day. She has a long time hx of migraines in which she has been on a estrogen patch for a long time. Her PCP has tried to wean her from the patch several times w/o success, every time her migraine returned within 1-2 days. She reports tingling n her hands b/l since the vertigo started. Denies speech difficulties, weakness. Family History: Unchanged from Admission Social History: Unchanged from Admission Past Medical History: Unchanged from Admission Objective Active Medications: Aspirin (Aspirin Ec Tab*) 81 mg PO QAM [facility] Last Admin: 11/19/17 09:45 Dose: 81 mg Diazepam (Valium Tab(*)) 2.5 mg PO Q8H PRN PRN Reason: dizziness Dicyclomine HCl (Bentyl Cap*) 10 mg PO BID [facility] Last Admin: 11/19/17 09:44 Dose: 10 mg Heparin Sodium (Porcine) (Heparin Vial(*)) 5,000 units SUBCUT Q12HR [facility] Last Admin: 11/19/17 09:44 Dose: 5,000 units Sodium Chloride (Ns 0.9% 1000 Ml*) 1,000 mls @ 100 mls/hr IV PER RATE [facility] Last Admin: 11/19/17 09:45 Dose: 100 mls/hr Metoprolol Tartrate (Lopressor Tab*) 12.5 mg PO DAILY [facility] Last Admin: 11/19/17 09:34 Dose: Not Given Omeprazole (Prilosec Cap*) 20 mg PO QAM [facility] Last Admin: 11/19/17 09:44 Dose: 20 mg Prochlorperazine Edisylate (Compazine Inj*) 5 mg IV Q6H PRN PRN Reason: NAUSEA/VOMITING Vital Signs - 8 hr 11/19/17 11/19/17 11/19/17 08:00 08:01 09:44 Temperature 98.0 F Pulse Rate 58 Respiratory 16 16 18 Rate Blood Pressure 126/57 (mmHg) O2 Sat by Pulse 99 Oximetry 11/19/17 11/19/17 11:22 12:36 Temperature 98.2 F Pulse Rate 61 Respiratory 16 16 Rate Blood Pressure 131/63 (mmHg) O2 Sat by Pulse 99 Oximetry Oxygen Devices in Use Now: None Appearance: well developed 76 yo female A+O x3 in NAD Eyes: No Scleral Icterus, PERRLA Ears/Nose/Mouth/Throat: NL Teeth, Lips, Gums, Mucous Membranes Moist Neck: NL Appearance and Movements; NL JVP Respiratory: Symmetrical Chest Expansion and Respiratory Effort, Clear to Auscultation Cardiovascular: NL Sounds; No Murmurs; No JVD, RRR, No Edema Abdominal: NL Sounds; No Tenderness; No Distention Extremities: No Edema, No Clubbing, Cyanosis Skin: No Rash or Ulcers, No Nodules or Sclerosis Neurological: Alert and Oriented x 3, NL Sensation, NL Muscle Strength and Tone , - - speech clear. EOMs intact. no pronator drift. Strength 5/5 throughout Lines/Tubes/Other Access: Clean, Dry and Intact Peripheral IV Nutrition: Taking PO's Result Diagrams: 11/19/17 05:56 11/19/17 06:02 Assess/Plan/Problems-Billing Assessment: Patient is a 76yo female with a PMH for migraines, CAD, and recent syncope who prevents with severe positional dizziness to the point she is unable to walk with associated severe headache. - Patient Problems (1) Acute severe vertigo Comment: - Severe positional vertigo present at a low level at all times but much worse with sitting and standing - Associated migraine which is consistent with previous history of migraine - pt believes this is secondary to her estrogen patch that was removed on admission d/t concern of hx of CAD. - Recent URI/Allergy symptoms - MRI brain negative, CTA head and neck negative - Differential includes BPPV, Vestibular neuronitis, Vestibular migraine - Neuro consult pending and appreciated. - metoprolol decreased yesterday d/t mild orthostasis (2) Syncope Comment: - Recent Syncope with no prodrome - No evalutation at time - Echo, Lipid profile and homeglobin A1c - Known CAD managed medically - echo EF 55-60% -wnls. mild valvular regurg - Possible arrhythmia, continue tele and consider stress test outpatient. (3) IBS (irritable bowel syndrome) Comment: - Persistent abdominal discomfort and nausea. - Continue Bentyl (4) Migraine Comment: - Severe headache consistent with previous migraine - pt believes MOTT is worse after estrogen patch was d/c'd on admission d/t concern of risk with hx of CAD - Multiple allergies, has had response to demerol and compazine before - Will trial this combination (5) DVT prophylaxis Comment: - Heparin SubQ (6) Full code status Status and Disposition: Inpatient.
[2017-11-19] MEDS ORDERED: predniSONE TAB* 20 MG PO ONE (16:27)
--- NOTE | 2017-11-19 23:59 | CONS ---
CONSULTATION NOTE: DATE OF CONSULT: 11/19/17 PATIENT OF: Delisa Lipscomb, RAY, and Dr. Stanford. MENTAL HYGIENE CONSULTANT: Dr. Zeng. HISTORY OF PRESENT ILLNESS: This is a 76-year-old woman who presents on with severe dizziness. She had had a slight sensation of room spinning the day before, but was not sure. She woke up from a nap on 11/17/17 with severe unsteadiness and positional vertigo and she was incapacitated and came into the emergency room. PAST MEDICAL HISTORY: She has a history of osteoarthritis; coronary artery disease, status post 2 angioplasties; migraines; asthma; psoriasis; GERD; irritable bowel syndrome. PAST SURGICAL HISTORY: She is status post Bartholin cyst excision, a left partial nephrectomy, bilateral cataract extraction, bilateral carpal tunnel release, hysterectomy, and a partial colectomy. MEDICATIONS: 1. EpiPen 0.3 mg IM for allergic reaction. 2. Aspirin 81 mg daily. 3. Dicyclomine 10 mg b.i.d. 4. Estradiol 0.025 patch topically weekly. 5. Metoprolol 12.5 b.i.d. 6. Protonix 40 mg daily. ALLERGIES: Allergic to BEES, BETAMETHASONE, CEFDINIR, CODEINE, DILAUDID, TALWIN , DIPROLENE, SULFA, ADHESIVE TAPE, CIPRO, ERYTHROMYCIN, LATEX, NABUMETONE, NICOTINE, OPIOIDS, PENICILLIN, SUCCINYLCHOLINE, ZOFRAN, MECLIZINE, and STATIN. I asked her why she was on the meclizine in the past, she has no recollection even though I said it would only be used for vertigo. FAMILY HISTORY: Her mother at 70 of congestive heart failure. It is unclear what the dad of. SOCIAL HISTORY: She is a former smoker, but quit in 1984. She drinks alcohol rarely. She is a homemaker and worked as a banker. She is , with 2 children. REVIEW OF SYSTEMS: Negative in all 14 spheres other than the HPI. PHYSICAL EXAM: Temperature 98.1, pulse 52, respirations 16, blood pressure 137/ 68. She is alert and oriented with normal speech and comprehension. Cranial nerves II through XII are intact. Even when she is slightly dizzy from raising her head up off the bed, she had no nystagmus. She moved side to side well and she says that her dizziness is getting better and is not there at rest and even when she turns her head in bed, it is not there. It is only when she makes more vigorous movements as getting up out of bed, but she is not lightheaded. Cranial nerves II through XII were normal. Fundi were sharp. Motor exam revealed normal tone and strength other than decreased scale attendant in the right hand, which she broke recently. She also had normal [id number] without past pointing. Reflexes were 1 and equal. Toes were downgoing. Sensation intact to light touch. Chest: Clear. Cardiovascular: Regular rate and rhythm. Abdomen: Soft with positive bowel sounds. DIAGNOSTIC STUDIES/LAB DATA: I reviewed her MRI scan, which showed a few white matter spots but nothing unusual for age. White count is 4.8, hematocrit 39, platelets 200. Normal INR. Normal CMP other than calcium of 8.4, magnesium is now normal at 2.2. LDL is 112. TSH 0.68. UA was negative. She had an echo that was unremarkable. She had a CTA which was negative as well. IMPRESSION AND PLAN: Beatrice most likely has peripheral vertigo either on the basis of labyrinthitis or neuronitis. It is unclear how she gets allergic to MECLIZINE, but we are going to try some Ativan and some prednisone for the next few days' time to see if this can help. She may benefit from Golden maneuvers as well if she does not begin to improve further. I discussed the case with Delisa Lipscomb NP. Thank you for sharing her care. [id number]/[facility] #: [id number] GARTH
[2017-11-20] MEDS: NS 0.9% 1000 ML* 1,000 ML IV SCH ×2 (07:44→18:33)
[2017-11-20] MEDS: Metoprolol Tartrate TAB* 25 MG PO SCH (09:47)
[2017-11-20] MEDS: Dicyclomine CAP* 10 MG PO SCH ×2 (09:48→20:43)
[2017-11-20] MEDS: Omeprazole CAP* 20 MG PO SCH (09:48)
[2017-11-20] MEDS: Heparin VIAL(*) 5000 UNITS/ML VIAL (FIVE THOUSAND) SUBCUT SCH ×2 (09:49→20:30)
[2017-11-20] MEDS: Aspirin EC TAB* 81 MG TAB.EC PO SCH (09:49)
[2017-11-20] MEDS ORDERED: Cyanocobalamin INJ * 1,000 MCG/ML VIAL 1 ML VIAL IM ONE (12:21)
[2017-11-20] MEDS ORDERED: LORazepam TAB(*) 0.5 MG PO ONE (12:57)
--- NOTE | 2017-11-20 15:10 | PN ---
Subjective Date of Service: 11/20/17 Interval History: Patient reports she continues to not be able to sit up past 20 degrees d/t continued vertigo. Reports her headache feels better today but still present. No aura, no vision changes. She denies numbness, weakness, speech changes. She denies any fever/chills Family History: Unchanged from Admission Social History: Unchanged from Admission Past Medical History: Unchanged from Admission Objective Active Medications: Aspirin (Aspirin Ec Tab*) 81 mg PO QAM [facility] Last Admin: 11/20/17 09:49 Dose: 81 mg Diazepam (Valium Tab(*)) 2.5 mg PO Q8H PRN PRN Reason: dizziness Dicyclomine HCl (Bentyl Cap*) 10 mg PO BID [facility] Last Admin: 11/20/17 09:48 Dose: 10 mg Heparin Sodium (Porcine) (Heparin Vial(*)) 5,000 units SUBCUT Q12HR [facility] Last Admin: 11/20/17 09:49 Dose: 5,000 units Sodium Chloride (Ns 0.9% 1000 Ml*) 1,000 mls @ 100 mls/hr IV PER RATE [facility] Last Admin: 11/20/17 07:44 Dose: 100 mls/hr Metoprolol Tartrate (Lopressor Tab*) 12.5 mg PO DAILY [facility] Last Admin: 11/20/17 09:47 Dose: 12.5 mg Omeprazole (Prilosec Cap*) 20 mg PO QAM [facility] Last Admin: 11/20/17 09:48 Dose: 20 mg Prochlorperazine Edisylate (Compazine Inj*) 5 mg IV Q6H PRN PRN Reason: NAUSEA/VOMITING Vital Signs - 8 hr 11/20/17 11/20/17 11/20/17 07:20 08:00 09:48 Temperature 97.7 F Pulse Rate 56 Respiratory 16 16 16 Rate Blood Pressure 130/64 (mmHg) O2 Sat by Pulse 97 Oximetry 11/20/17 11:03 Temperature 97.9 F Pulse Rate 55 Respiratory 16 Rate Blood Pressure 134/57 (mmHg) O2 Sat by Pulse 95 Oximetry Oxygen Devices in Use Now: None Appearance: well developed 76 yo female A+O x3 Eyes: No Scleral Icterus, PERRLA Ears/Nose/Mouth/Throat: NL Teeth, Lips, Gums, Mucous Membranes Moist Neck: NL Appearance and Movements; NL JVP Respiratory: Symmetrical Chest Expansion and Respiratory Effort, Clear to Auscultation Cardiovascular: NL Sounds; No Murmurs; No JVD, RRR, No Edema Abdominal: NL Sounds; No Tenderness; No Distention Extremities: No Edema, No Clubbing, Cyanosis Skin: No Rash or Ulcers, No Nodules or Sclerosis Neurological: Alert and Oriented x 3, NL Sensation, NL Muscle Strength and Tone Lines/Tubes/Other Access: Clean, Dry and Intact Peripheral IV Nutrition: Taking PO's Result Diagrams: 11/19/17 05:56 11/19/17 06:02 Assess/Plan/Problems-Billing Assessment: Patient is a 76yo female with a PMH for migraines, CAD, and recent syncope who prevents with severe positional dizziness to the point she is unable to walk with associated severe headache. - Patient Problems (1) Acute severe vertigo Comment: - Severe positional vertigo present at a low level at all times but much worse with sitting and standing - this is slightly improved from yesterday - Associated migraine which is consistent with previous history of migraine - pt believes her migraine is secondary to her estrogen patch that was removed on admission d/t concern of hx of CAD. - Recent URI/Allergy symptoms - MRI brain negative, CTA head and neck negative - Differential includes BPPV, Vestibular neuronitis, Vestibular migraine - Neuro consult appreciated - recommend ativan and prednisone - metoprolol decreased yesterday d/t mild orthostasis (2) Migraine Comment: - Severe headache consistent with previous migraine today improving - pt believes MOTT is worse after estrogen patch was d/c'd on admission d/t concern of risk with hx of CAD (3) Syncope Comment: - Recent Syncope with no prodrome - No evalutation at time - no noted arrythmias on tele. No signs of PE - Known CAD managed medically - echo EF 55-60% -wnls. mild valvular regurg - consider outpt stress (4) IBS (irritable bowel syndrome) Comment: - Resolved - reports [facility] hx of GI discomfort and is followed by GI at [facility] closely. - Continue Bentyl (5) Vitamin D deficiency Comment: - start replacement (6) Vitamin B12 deficiency Comment: - start replacement (7) Full code status (8) DVT prophylaxis Comment: - Heparin SubQ Status and Disposition: Inpatient.
[2017-11-20] MEDS: Cholecalciferol TAB* 1000 UNITS PO ONE ×2 (18:35→20:28)
[2017-11-20] MEDS: LORazepam TAB(*) 0.5 MG PO SCH (20:35)
[2017-11-21 06:38] LABS: ABS Basophils 0 10^3/ul (0-0.2); ABS Eosinophils 0 10^3/ul (0-0.6); ABS Lymphocytes 1.4 10^3/ul (1.0-4.8); ABS Monocytes 0.4 10^3/ul (0-0.8); ABS Neutrophils 2.3 10^3/ul (1.5-7.7); ABS Nucleated RBC 0 10^3/ul; Eosinophil % 1.2 % (0-6); Hematocrit 37 % (35-47); Lymphocyte % 33.3 % (25-47); Mean Corpuscular HGB Conc 35 g/dl (31-36); Mean Corpuscular Hemoglobin 32 pg (27-31); Mean Corpuscular Volume 91 fL (80-97); Mean Platelet Volume 8.2 um3 (7.4-10.4); Nucleated Red Blood Cells % 0.5; Platelet Count 174 10^3/ul (150-450); Red Blood Count 4.06 10^6/ul (4.00-5.40); Red Cell Distribution Width 14 % (10.5-15); White Blood Count 4.1 10^3/ul (3.5-10.8)
[2017-11-21 06:59] LABS: EGFR Non-African American 95.9 (>60)
[2017-11-21] MEDS: Heparin VIAL(*) 5000 UNITS/ML VIAL (FIVE THOUSAND) SUBCUT SCH ×2 (08:55→22:09)
[2017-11-21] MEDS: Omeprazole CAP* 20 MG PO SCH (08:55)
[2017-11-21] MEDS: Aspirin EC TAB* 81 MG TAB.EC PO SCH (08:55)
[2017-11-21] MEDS: Dicyclomine CAP* 10 MG PO SCH ×2 (08:55→22:08)
[2017-11-21] MEDS: LORazepam TAB(*) 0.5 MG PO SCH ×2 (08:55→22:10)
[2017-11-21] MEDS ORDERED: Cyanocobalamin INJ * 1,000 MCG/ML VIAL 1 ML VIAL IM ONE (09:00)
[2017-11-21] MEDS: Metoprolol Tartrate TAB* 25 MG PO SCH (09:28)
[2017-11-21] MEDS: predniSONE TAB* 20 MG PO SCH (09:28)
[2017-11-21] MEDS: NS 0.9% 1000 ML* 1,000 ML IV SCH (12:42)
[2017-11-21] MEDS ORDERED: Magnesium Sulfate 2 GM IV* 2 GM/50 ML BAG IVPB ONE (14:48)
--- NOTE | 2017-11-21 15:45 | PN ---
Subjective Date of Service: 11/21/17 Interval History: . Pt reports she continues to have vertigo unable to lift head off bed > 20 degrees. She does feel like this is getting better everyday, today she can now watch TV which she hasnt been able to do. No nausea. Good appetite. Mild MOTT. No fever or chills. Family History: Unchanged from Admission Social History: Unchanged from Admission Past Medical History: Unchanged from Admission Objective Active Medications: Aspirin (Aspirin Ec Tab*) 81 mg PO QAM [facility] Last Admin: 11/21/17 08:55 Dose: 81 mg Dicyclomine HCl (Bentyl Cap*) 10 mg PO BID [facility] Last Admin: 11/21/17 08:55 Dose: 10 mg Heparin Sodium (Porcine) (Heparin Vial(*)) 5,000 units SUBCUT Q12HR [facility] Last Admin: 11/21/17 08:55 Dose: 5,000 units Sodium Chloride (Ns 0.9% 1000 Ml*) 1,000 mls @ 100 mls/hr IV PER RATE [facility] Last Admin: 11/21/17 12:42 Dose: 100 mls/hr Magnesium Sulfate (Magnesium Sulfate 2 Gm Iv*) 2 gm in 50 mls @ 50 mls/hr IVPB ONCE ONE Stop: 11/21/17 15:47 Last Admin: 11/21/17 15:14 Dose: 50 mls/hr Lorazepam (Ativan Tab(*)) 0.25 mg PO Q12H [facility] Last Admin: 11/21/17 08:55 Dose: 0.25 mg Metoprolol Tartrate (Lopressor Tab*) 12.5 mg PO DAILY [facility] Last Admin: 11/21/17 09:28 Dose: 12.5 mg Omeprazole (Prilosec Cap*) 20 mg PO QAM [facility] Last Admin: 11/21/17 08:55 Dose: 20 mg Prednisone (Deltasone Tab*) 40 mg PO DAILY [facility] Last Admin: 11/21/17 09:28 Dose: 40 mg Prochlorperazine Edisylate (Compazine Inj*) 5 mg IV Q6H PRN PRN Reason: NAUSEA/VOMITING Last Admin: 11/20/17 20:30 Dose: 5 mg Vital Signs - 8 hr 11/21/17 11/21/17 11/21/17 08:00 08:55 09:00 Temperature Pulse Rate 66 Respiratory 18 16 Rate Blood Pressure (mmHg) O2 Sat by Pulse Oximetry 11/21/17 11/21/17 10:57 12:50 Temperature 98.6 F Pulse Rate 61 Respiratory 16 18 Rate Blood Pressure 156/62 (mmHg) O2 Sat by Pulse 97 Oximetry Oxygen Devices in Use Now: None Appearance: 77 yo well developed female A+O x3 in NAD Eyes: No Scleral Icterus, PERRLA Ears/Nose/Mouth/Throat: NL Teeth, Lips, Gums, Mucous Membranes Moist Neck: NL Appearance and Movements; NL JVP Respiratory: Symmetrical Chest Expansion and Respiratory Effort, Clear to Auscultation Cardiovascular: NL Sounds; No Murmurs; No JVD, RRR, No Edema Abdominal: NL Sounds; No Tenderness; No Distention Extremities: No Edema, No Clubbing, Cyanosis Skin: No Rash or Ulcers, No Nodules or Sclerosis Neurological: Alert and Oriented x 3, NL Sensation, NL Muscle Strength and Tone , - - strength is equal, speech is clear. No pronator drift. sitting up past 20 degress induces "spinning" of the room Lines/Tubes/Other Access: Clean, Dry and Intact PICC Line Nutrition: Taking PO's Result Diagrams: 11/21/17 06:03 11/21/17 06:03 Assess/Plan/Problems-Billing Assessment: Patient is a 76yo female with a PMH for migraines, CAD, and recent syncope who prevents with severe positional dizziness to the point she is unable to walk with associated severe headache. - Patient Problems (1) Acute severe vertigo Comment: - Severe positional vertigo present at a low level at all times but much worse with sitting and standing - improving a little everyday. - Associated migraine which is consistent with previous history of migraine - pt believes her migraine is secondary to her estrogen patch that was removed on admission d/t concern of hx of CAD. - Recent URI/Allergy symptoms - MRI brain negative, CTA head and neck negative - Differential includes BPPV, Vestibular neuronitis, Vestibular migraine - Neuro consult appreciated - recommend ativan and prednisone - plan to attempt Epely - metoprolol decreased yesterday d/t mild orthostasis (2) Migraine Comment: - improving (3) Syncope Comment: - Recent Syncope with no prodrome - No evalutation at time - no noted arrythmias on tele. No signs of PE - Known CAD managed medically - echo EF 55-60% -wnls. mild valvular regurg - consider outpt stress (4) IBS (irritable bowel syndrome) Comment: - Resolved - reports long-term hx of GI discomfort and is followed by GI at [facility] closely. - Continue Bentyl (5) Vitamin D deficiency Comment: - continue replacement (6) Vitamin B12 deficiency Comment: - continue replacement (7) Full code status (8) DVT prophylaxis Comment: - Heparin SubQ Status and Disposition: Inpatient.
[2017-11-22] MEDS: NS 0.9% 1000 ML* 1,000 ML IV SCH ×2 (00:24→12:49)
[2017-11-22 06:46] LABS: ABS Basophils 0 10^3/ul (0-0.2); ABS Eosinophils 0 10^3/ul (0-0.6); ABS Lymphocytes 1.5 10^3/ul (1.0-4.8); ABS Monocytes 0.6 10^3/ul (0-0.8); ABS Neutrophils 5.5 10^3/ul (1.5-7.7); ABS Nucleated RBC 0 10^3/ul; Eosinophil % 0.3 % (0-6); Hematocrit 36 % (35-47); Hemoglobin 12.6 g/dl (12.0-16.0); Lymphocyte % 19.8 % (25-47); Mean Corpuscular HGB Conc 35 g/dl (31-36); Mean Corpuscular Hemoglobin 31 pg (27-31); Mean Corpuscular Volume 90 fL (80-97); Nucleated Red Blood Cells % 0.1; Platelet Count 193 10^3/ul (150-450); Red Blood Count 4.03 10^6/ul (4.00-5.40); Red Cell Distribution Width 14 % (10.5-15); White Blood Count 7.6 10^3/ul (3.5-10.8)
[2017-11-22 07:10] LABS: EGFR Non-African American 95.9 (>60)
[2017-11-22] MEDS: Omeprazole CAP* 20 MG PO SCH (08:20)
[2017-11-22] MEDS: Aspirin EC TAB* 81 MG TAB.EC PO SCH (08:20)
[2017-11-22] MEDS: Heparin VIAL(*) 5000 UNITS/ML VIAL (FIVE THOUSAND) SUBCUT SCH ×2 (08:20→21:33)
[2017-11-22] MEDS: Metoprolol Tartrate TAB* 25 MG PO SCH (08:20)
[2017-11-22] MEDS: Dicyclomine CAP* 10 MG PO SCH ×2 (08:20→21:35)
[2017-11-22] MEDS: predniSONE TAB* 20 MG PO SCH (08:20)
[2017-11-22] MEDS: LORazepam TAB(*) 0.5 MG PO SCH (08:21)
--- NOTE | 2017-11-22 12:03 | PN ---
Subjective Date of Service: 11/22/17 Interval History: . Patient reports she continues to feel dizzy when lifting her head off the pillow. She reports she tried to sit up this morning and the "room was spinning and seemd upside down". She reports no dizziness or spinning when head is flat on the pillow. She can roll side to side w/o much dizziness. She has been eating and drinking laying flat and has not been OOB since admission. No nausea. MOTT mild today. She does report she feels like everyday she is a little better. Family History: Unchanged from Admission Social History: Unchanged from Admission Past Medical History: Unchanged from Admission Objective Active Medications: Aspirin (Aspirin Ec Tab*) 81 mg PO QAM [facility] Last Admin: 11/22/17 08:20 Dose: 81 mg Dicyclomine HCl (Bentyl Cap*) 10 mg PO BID [facility] Last Admin: 11/22/17 08:20 Dose: 10 mg Heparin Sodium (Porcine) (Heparin Vial(*)) 5,000 units SUBCUT Q12HR [facility] Last Admin: 11/22/17 08:20 Dose: 5,000 units Sodium Chloride (Ns 0.9% 1000 Ml*) 1,000 mls @ 100 mls/hr IV PER RATE [facility] Last Admin: 11/22/17 00:24 Dose: 100 mls/hr Lorazepam (Ativan Tab(*)) 0.25 mg PO Q12H [facility] Last Admin: 11/22/17 08:21 Dose: 0.25 mg Metoprolol Tartrate (Lopressor Tab*) 12.5 mg PO DAILY [facility] Last Admin: 11/22/17 08:20 Dose: 12.5 mg Omeprazole (Prilosec Cap*) 20 mg PO QAM [facility] Last Admin: 11/22/17 08:20 Dose: 20 mg Prednisone (Deltasone Tab*) 40 mg PO DAILY [facility] Last Admin: 11/22/17 08:20 Dose: 40 mg Prochlorperazine Edisylate (Compazine Inj*) 5 mg IV Q6H PRN PRN Reason: NAUSEA/VOMITING Last Admin: 11/20/17 20:30 Dose: 5 mg Vital Signs - 8 hr 11/22/17 11/22/17 11/22/17 08:00 08:04 08:20 Temperature 99.5 F Pulse Rate 57 Respiratory 16 16 16 Rate Blood Pressure 134/73 (mmHg) O2 Sat by Pulse 97 Oximetry 11/22/17 11/22/17 11/22/17 08:21 09:15 10:53 Temperature Pulse Rate 61 Respiratory 16 16 Rate Blood Pressure (mmHg) O2 Sat by Pulse Oximetry Oxygen Devices in Use Now: None Appearance: A+O x3 in NAD Eyes: No Scleral Icterus, PERRLA Ears/Nose/Mouth/Throat: NL Teeth, Lips, Gums, Mucous Membranes Moist Neck: NL Appearance and Movements; NL JVP Respiratory: Symmetrical Chest Expansion and Respiratory Effort, Clear to Auscultation Cardiovascular: NL Sounds; No Murmurs; No JVD, RRR Abdominal: NL Sounds; No Tenderness; No Distention Extremities: No Edema, No Clubbing, Cyanosis Skin: No Rash or Ulcers, No Nodules or Sclerosis Neurological: Alert and Oriented x 3, NL Sensation, NL Muscle Strength and Tone , - - unable to lift head > 20 degrees off pillow d/t room spinning Lines/Tubes/Other Access: Clean, Dry and Intact Peripheral IV Nutrition: Taking PO's Result Diagrams: 11/22/17 06:28 11/22/17 06:28 Assess/Plan/Problems-Billing Assessment: Patient is a 76yo female with a PMH for migraines, CAD, and recent syncope who prevents with severe positional dizziness to the point she is unable to walk with associated severe headache. - Patient Problems (1) Acute severe vertigo Comment: - Neuro consult appreciated - suspects vestibular neuritis - Improving everyday, will take time - Recent URI/Allergy symptoms - MRI brain negative, CTA head and neck negative - supportive treatment (2) Migraine Comment: - improving (3) Syncope Comment: - Recent Syncope with no prodrome - No evaluation at time - no noted arrythmias on tele. No signs of PE - Known CAD managed medically - echo EF 55-60% -wnls. mild valvular regurg - consider outpt stress (4) IBS (irritable bowel syndrome) Comment: - Resolved - reports [facility] hx of GI discomfort and is followed by GI at [facility] closely. - Continue Bentyl (5) Vitamin D deficiency Comment: - continue replacement (6) Vitamin B12 deficiency Comment: - continue replacement - Intrinsic factor Ab negative (7) Full code status (8) DVT prophylaxis Comment: - Heparin SubQ Status and Disposition: Inpatient. Home when medically stable
[2017-11-23] MEDS: NS 0.9% 1000 ML* 1,000 ML IV SCH (05:53)
--- NOTE | 2017-11-23 06:45 | PN ---
PROGRESS NOTE: DATE OF SERVICE: 11/22/2017. PATIENT OF: Shannan Lipscomb. She remains vertiginous, but has no other numbness, weakness or other symptoms. MEDICATIONS: Include her, 1. Ativan. 2. Prednisone 40 mg daily. 3. Aspirin 81 mg daily. 4. Compazine p.r.n. PHYSICAL EXAMINATION: On exam, she is afebrile. Pulse is 69, respiratory rate 16, blood pressure 134/74, temperature 99.5. She was alert and oriented with normal speech, comprehension. Strength is 5/5. Dr. Morales and I performed Keyla-Hallpike maneuver and then did an Golden's maneuver. She has persistent nystagmus with several beats to the right that persists with time and does not appear to be benign positional vertigo. This most likely is a labyrinthitis and treatment should continue to be just symptomatic treatment with benzodiazepines and tapering dose of steroids. She is on Compazine that can be used p.r.n. It is likely she will begin to improve in the next few days' time and Dr. Bernardo is available if there is any questions or concerns. [id number]/[facility] #: [id number] MTDD
[2017-11-23] MEDS ORDERED: Cyanocobalamin INJ * 1,000 MCG/ML VIAL 1 ML VIAL IM ONE (08:31)
[2017-11-23] MEDS: Dicyclomine CAP* 10 MG PO SCH ×2 (08:45→20:47)
[2017-11-23] MEDS: Heparin VIAL(*) 5000 UNITS/ML VIAL (FIVE THOUSAND) SUBCUT SCH ×2 (08:45→20:46)
[2017-11-23] MEDS: Omeprazole CAP* 20 MG PO SCH (08:47)
[2017-11-23] MEDS: Metoprolol Tartrate TAB* 25 MG PO SCH (08:47)
[2017-11-23] MEDS: Aspirin EC TAB* 81 MG TAB.EC PO SCH (08:48)
[2017-11-23] MEDS ORDERED: predniSONE TAB* 10 MG PO SCH (09:00)
[2017-11-23] MEDS: Cyanocobalamin INJ * 1,000 MCG/ML VIAL 1 ML VIAL IM SCH (09:58)
[2017-11-23] MEDS: Cholecalciferol TAB* 1000 UNITS PO SCH (09:59)
--- NOTE | 2017-11-23 11:20 | PN ---
Subjective Date of Service: 11/23/17 Interval History: Pt reports moderate headache over eyes. No associated nausea. This is similar to headaches she has gotten before (not level of migraine), which can sometimes be aborted with tylenol, which has been ordered. She says her vertigo symptoms have slightly improved when lying flat, however when she raised her head or tries to sit up she feels like her "body is going one way and the room is going another" and instantly has to lie down to make the feeling retreat. Also reports constipation, with no BMs since admission, so will order bowel regimen. Pt denies chest pain, palpitations, shortness of breath, abdominal pain, N/V, dysuria, numbness or tingling. Family History: Unchanged from Admission Social History: Unchanged from Admission Past Medical History: Unchanged from Admission Objective Active Medications: Acetaminophen (Tylenol Tab*) 650 mg PO Q6H PRN PRN Reason: HEADACHE Aspirin (Aspirin Ec Tab*) 81 mg PO QAM [facility] Last Admin: 11/23/17 08:48 Dose: 81 mg Cholecalciferol (Vitamin D Tab*) 2,000 units PO DAILY [facility] Last Admin: 11/23/17 09:59 Dose: 2,000 units Cyanocobalamin (Vitamin B12 Inj *) 1,000 mcg IM DAILY [facility] Stop: 11/27/17 09:01 Last Admin: 11/23/17 09:58 Dose: 1,000 mcg Dicyclomine HCl (Bentyl Cap*) 10 mg PO BID [facility] Last Admin: 11/23/17 08:45 Dose: 10 mg Heparin Sodium (Porcine) (Heparin Vial(*)) 5,000 units SUBCUT Q12HR [facility] Last Admin: 11/23/17 08:45 Dose: 5,000 units Metoprolol Tartrate (Lopressor Tab*) 12.5 mg PO DAILY [facility] Last Admin: 11/23/17 08:47 Dose: 12.5 mg Omeprazole (Prilosec Cap*) 20 mg PO QAM [facility] Last Admin: 11/23/17 08:47 Dose: 20 mg Prednisone (Deltasone Tab*) 30 mg PO DAILY [facility] Last Admin: 11/23/17 08:46 Dose: 30 mg Prochlorperazine Edisylate (Compazine Inj*) 5 mg IV Q6H PRN PRN Reason: NAUSEA/VOMITING Last Admin: 11/20/17 20:30 Dose: 5 mg Vital Signs - 8 hr 11/23/17 11/23/17 11/23/17 03:38 07:44 08:00 Temperature 98.0 F 98.4 F Pulse Rate 49 55 Respiratory 16 18 18 Rate Blood Pressure 116/60 126/62 (mmHg) O2 Sat by Pulse 95 97 Oximetry 11/23/17 08:45 Temperature Pulse Rate Respiratory 16 Rate Blood Pressure (mmHg) O2 Sat by Pulse Oximetry Oxygen Devices in Use Now: None Eyes: No Scleral Icterus, PERRLA Ears/Nose/Mouth/Throat: NL Teeth, Lips, Gums, Clear Oropharnyx, Mucous Membranes Moist Neck: NL Appearance and Movements; NL JVP, Trachea Midline Respiratory: Symmetrical Chest Expansion and Respiratory Effort, Clear to Auscultation Cardiovascular: NL Sounds; No Murmurs; No JVD, RRR, No Edema Abdominal: NL Sounds; No Tenderness; No Distention Extremities: No Edema, No Clubbing, Cyanosis, - - 2+ PT pulses Skin: No Rash or Ulcers, No Nodules or Sclerosis Neurological: Alert and Oriented x 3, NL Sensation - PERRLA, EOMs intact. No nystagmus noted., NL Muscle Strength and Tone Lines/Tubes/Other Access: Clean, Dry and Intact PICC Line Nutrition: Taking PO's Result Diagrams: 11/22/17 06:28 11/22/17 06:28 Assess/Plan/Problems-Billing Assessment: Patient is a 76yo female with a PMH for migraines, CAD, and recent syncope who prevents with severe positional dizziness to the point she is unable to walk with associated severe headache. - Patient Problems (1) Acute severe vertigo Current Visit: Yes Status: Acute Code(s): R42 - DIZZINESS AND GIDDINESS SNOMED Code(s): 944218700 Comment: - Pt reports symptoms slightly improved when lying flat, however still severe when sitting or standing. - Neuro is following, suspects vestibular neuritis (post-viral in the setting of recent URI symptoms/sinus fullness). BPPV less likely as symptoms persist after Golden maneuver was performed by neuro. - Supportive treatment with prednisone taper (10 mg tomorrow then can d/c) and PRN compazine - MRI brain negative, CTA head and neck negative (2) Migraine Current Visit: Yes Status: Acute Code(s): G43.909 - MIGRAINE, UNSP, NOT INTRACTABLE, WITHOUT STATUS MIGRAINOSUS SNOMED Code(s): 67731292 Comment: - Moderate headache today. Continue PRN tylenol. If becomes more severe, can consider using demerol again, which has worked for her in the past. - Pt has been using estrogen patch for migraine ppx for years, with various failed attempts at weaning or discontinuing under the watch of her PCP. Patch was discontinued on admission due to hx CAD and increased of stroke with estrogen containing products. Neurology advises not restarting patch, but PCP is ok with restarting. Ultimatley, will be decision based on risks-benefits. (3) Vitamin B12 deficiency Current Visit: Yes Status: Acute Code(s): E53.8 - DEFICIENCY OF OTHER SPECIFIED B GROUP VITAMINS SNOMED Code(s): 972240599 Comment: - continue replacement - Intrinsic factor Ab negative (4) Vitamin D deficiency Current Visit: Yes Status: Acute Code(s): E55.9 - VITAMIN D DEFICIENCY, UNSPECIFIED SNOMED Code(s): 96709458 Comment: - continue replacement (5) IBS (irritable bowel syndrome) Current Visit: Yes Status: Acute Comment: - Resolved - reports [facility] hx of GI discomfort and is followed by GI at [facility] closely. - Pt reporting constipation with last BM prior to admission, though she normally has diarrhea. Have added bowel regimen. - Continue Bentyl (6) CAD (coronary artery disease) Current Visit: Yes Status: Acute Code(s): I25.10 - ATHSCL HEART DISEASE OF [place] CORONARY ARTERY W/O ANG PCTRS SNOMED Code(s): 76740042 Comment: - Continue metoprolol 12.5mg PO daily and aspirin 81mg daily (7) DVT prophylaxis Current Visit: Yes Status: Acute Code(s): IMV6750 - SNOMED Code(s): 385638592 Comment: - Heparin SubQ (8) Full code status Current Visit: Yes Status: Acute Code(s): Z78.9 - OTHER SPECIFIED HEALTH STATUS SNOMED Code(s): 199965345 Status and Disposition: Inpatient. Home when medically stable Attending: Butch Zimmerman
[2017-11-23] MEDS ORDERED: Docusate CAP* 100 MG PO PRN (11:21)
[2017-11-23] MEDS ORDERED: Senna TAB PO PRN (11:22)
[2017-11-23] MEDS: Acetaminophen TAB* 325 MG PO PRN (11:32)
[2017-11-24] MEDS: Cyanocobalamin INJ * 1,000 MCG/ML VIAL 1 ML VIAL IM SCH (08:32)
[2017-11-24] MEDS: Cholecalciferol TAB* 1000 UNITS PO SCH (08:32)
[2017-11-24] MEDS: Heparin VIAL(*) 5000 UNITS/ML VIAL (FIVE THOUSAND) SUBCUT SCH ×2 (08:32→21:01)
[2017-11-24] MEDS: Acetaminophen TAB* 325 MG PO PRN (08:33)
[2017-11-24] MEDS: Dicyclomine CAP* 10 MG PO SCH ×2 (08:34→21:00)
[2017-11-24] MEDS: predniSONE TAB* 10 MG PO SCH (08:34)
[2017-11-24] MEDS: Metoprolol Tartrate TAB* 25 MG PO SCH (08:34)
[2017-11-24] MEDS: Omeprazole CAP* 20 MG PO SCH (08:34)
[2017-11-24] MEDS: Aspirin EC TAB* 81 MG TAB.EC PO SCH (08:35)
--- NOTE | 2017-11-24 13:08 | PN ---
Subjective Date of Service: 11/24/17 Interval History: Ms. Michaels reports that she is feeling better. She did have a headache this morning but that has abated. She reports continued vertigo but has found the eye positioning recommendations from PT to be very helpful. She is now able to be up out of bed and walk a few steps. She denies other symptom including chest pain, SOB, nausea, or abdominal pain. Family History: Unchanged from Admission Social History: Unchanged from Admission Past Medical History: Unchanged from Admission Objective Active Medications: Acetaminophen (Tylenol Tab*) 650 mg PO Q6H PRN Aspirin (Aspirin Ec Tab*) 81 mg PO QAM EYAD Cholecalciferol (Vitamin D Tab*) 2,000 units PO DAILY EYAD Cyanocobalamin (Vitamin B12 Inj *) 1,000 mcg IM DAILY EYAD Dicyclomine HCl (Bentyl Cap*) 10 mg PO BID EYAD Docusate Sodium (Colace Cap*) 100 mg PO DAILY PRN Heparin Sodium (Porcine) (Heparin Vial(*)) 5,000 units SUBCUT Q12HR EYAD Metoprolol Tartrate (Lopressor Tab*) 12.5 mg PO DAILY EYAD Omeprazole (Prilosec Cap*) 20 mg PO QAM EYAD Prednisone (Deltasone Tab*) 10 mg PO DAILY EYAD Prochlorperazine Edisylate (Compazine Inj*) 5 mg IV Q6H PRN Senna (Senokot Tab*) 1 tab PO DAILY PRN Vital Signs: Temp Pulse Resp BP Pulse Ox 97.9 F 50 16 135/65 97 11/24/17 07:25 11/24/17 07:25 11/24/17 08:34 11/24/17 07:25 11/24/17 07:25 Oxygen Devices in Use Now: None Appearance: Female lying in bed in NAD Eyes: No Scleral Icterus Ears/Nose/Mouth/Throat: Mucous Membranes Moist Neck: Trachea Midline Respiratory: Symmetrical Chest Expansion and Respiratory Effort, Clear to Auscultation Cardiovascular: NL Sounds; No Murmurs; No JVD, No Edema Abdominal: NL Sounds; No Tenderness; No Distention Extremities: No Edema Skin: No Rash or Ulcers Neurological: Alert and Oriented x 3, NL Muscle Strength and Tone Nutrition: Taking PO's Result Diagrams: 11/22/17 06:28 11/22/17 06:28 Assess/Plan/Problems-Billing Assessment: Ms. Michaels is a 76yo female with a PMH for migraines, CAD, and recent syncope who prevents with severe positional dizziness to the point she is unable to walk with associated severe headache thought to be secondary to vestibular neuritis. - Patient Problems (1) Acute severe vertigo Comment: - Improving with eye positioning recommendations from PT, able to sit on edge of bed and transfer to commode. - Neuro is following, suspects vestibular neuritis (post-viral in the setting of recent URI symptoms/sinus fullness). BPPV less likely as symptoms persist after Golden maneuver was performed by neuro. - Supportive treatment with prednisone taper (10 mg tomorrow then can d/c) and PRN compazine - MRI brain negative, CTA head and neck negative (2) CAD (coronary artery disease) Comment: - Continue metoprolol 12.5mg PO daily and aspirin 81mg daily (3) IBS (irritable bowel syndrome) Comment: - Asymptomatic - Continue bentyl (4) Migraine Comment: - Moderate headache intermittently. Continue PRN tylenol. - Pt has been using estrogen patch for migraine ppx for years, with various failed attempts at weaning or discontinuing under the watch of her PCP. Patch was discontinued on admission due to hx CAD and increased of stroke with estrogen containing products. Neurology advises not restarting patch, but PCP is ok with restarting. Ultimatley, will be decision based on risks-benefits. (5) Syncope Comment: - Recent syncope with no prodrome prior to this admission - No evaluation at time - No noted arrythmias on tele. No signs of PE - Known CAD managed medically - echo EF 55-60% -wnls. mild valvular regurg - consider outpt stress (6) Vitamin B12 deficiency Comment: - continue replacement - Intrinsic factor Ab negative (7) Vitamin D deficiency Comment: - continue replacement (8) DVT prophylaxis Comment: - Heparin SubQ (9) Full code status Comment: Status and Disposition: Inpatient. Patient counseled about discharge to home, she is arranging supportive care with set up of hospital bed, bedside commode, and walker as well as placement of rails along stairs within the home-- with planned discharge tomorrow.
--- NOTE | 2017-11-25 00:49 | DS ---
AMENDED REPORT NOW INCLUDES DESIGNATED COSIGNER CC: Dr. Stanford * [facility] MEDICINE DISCHARGE SUMMARY: DATE OF ADMISSION: 11/17/17 DATE OF DISCHARGE: 11/24/17 PRIMARY CARE PHYSICIAN: Dr. Stanford. ATTENDING PHYSICIAN: Dr. Butch Zimmerman * (dictation provided by Lilo Ruiz NP) PRIMARY DIAGNOSIS: Vertigo likely secondary to vestibular neuritis. SECONDARY DIAGNOSES: 1. History of osteoarthritis. 2. Coronary artery disease, status post angioplasty x2. 3. Migraine. 4. Asthma. 5. Psoriasis. 6. Gastroesophageal reflux disease. 7. Irritable bowel syndrome. PAST SURGICAL HISTORY: 1. Bartholin cyst excision. 2. Left partial nephrectomy. 3. Bilateral cataract extraction. 4. Bilateral carpal tunnel release. 5. Hysterectomy. 6. Partial colectomy. MEDICATIONS AT TIME OF DISCHARGE: 1. Pantoprazole 40 mg p.o. q.a.m. 2. Metoprolol tartrate 12.5 mg p.o. b.i.d. 3. Dicyclomine 10 mg p.o. b.i.d. 4. Aspirin 81 mg p.o. q.a.m. 5. Epinephrine/EpiPen as needed. 6. Cyanocobalamin 1000 mcg p.o. daily. 7. Cholecalciferol 2000 units p.o. daily. HOSPITAL COURSE: Ms. Michaels is a 76-year-old female with past medical history as outlined above, who presented to the emergency room on 11/17/17 with concern for dizziness. Please see the dictated H and P from Lakesha Finnegan DO, for complete details. In brief, the patient stated that afternoon prior to arrival , she had a slight sensation of dizziness. When she woke up in the morning, she noted severe unsteadiness and vertigo. In the emergency room, the patient had a head CTA, which showed "normal variation without pathological finding of the central intracranial arterial vasculature." She had a brain MRI, which showed "unremarkable MRI of the brain, there was no restricted diffusion to suggest acute infarct." The vitals were stable. Her labs were unremarkable. Ms. Michaels was admitted to the hospital due to severe vertigo and inability to ambulate. She was seen in consultation by the neurology team. I will refer you to Dr. Henry's note for complete details. He suspected that she would like to have benign positional paroxysmal vertigo versus vestibular neuritis. She is allergic to MECLIZINE, but did try Ativan but that was not effective in relieving her symptoms. She was also treated with prednisone. She stated she did not tolerate her past use of scopolamine for motion sickness in the past and therefore this was not utilized. Over the intervening days, Ms. Michaels has had minimal improvement in her vertigo. She was seen by Dr. Herny again who performed a Keyla-Hallpike maneuver and Golden maneuver, but there was no improvement in her symptoms. It is suspected then that she likely has vestibular neuritis likely in the right ear due to the predominance of symptoms only when she looks to the right. She has been seen by Physical Therapy who recommended some eye positions that have helped her with vertigo and she is able to sit on the edge of the bed now. She is also able to transfer to bedside commode. I reviewed at length with Ms. Michaels that the cause of her vertigo was benign and that it is unclear how long her symptoms will continue, but that she is making progress. She is going to work with her , who can help with her care, to arrange for hospital bed, a bedside commode, walker, and placement of railing along steps in the home, so that she can be discharged to home safely tomorrow. Ms. Michaels is medically stable for discharge to home tomorrow when safety arrangements can be made at home. DISPOSITION: Home. DIET: Low fat, low salt. ACTIVITY: As tolerated. FOLLOWUP PLANS: Please follow up with Dr. Stanford in the next 4 to 7 days regarding this acute hospitalization. During the hospitalization, the patient was tested for vitamin B12 and vitamin D deficiency. She was noted to have vitamin D level less than 7 and a vitamin B12 level of 142 and therefore supplementation has been started. TIME SPENT: Approximately 60 minutes was spent in the discharge of this patient , more than half the time was spent with the patient at the bedside reviewing the events leading up to this hospitalization, performing the physical examination, and reviewing the plan of care. LILO RUIZ, RAY [id number]/[facility] #: [id number] [facility]
[2017-11-25] MEDS: Dicyclomine CAP* 10 MG PO SCH (08:21)
[2017-11-25] MEDS: Cholecalciferol TAB* 1000 UNITS PO SCH (08:22)
[2017-11-25] MEDS: Omeprazole CAP* 20 MG PO SCH (08:22)
[2017-11-25] MEDS: Metoprolol Tartrate TAB* 25 MG PO SCH (08:23)
[2017-11-25] MEDS: predniSONE TAB* 10 MG PO SCH (08:23)
[2017-11-25] MEDS: Heparin VIAL(*) 5000 UNITS/ML VIAL (FIVE THOUSAND) SUBCUT SCH (08:24)
[2017-11-25] MEDS: Cyanocobalamin INJ * 1,000 MCG/ML VIAL 1 ML VIAL IM SCH (08:24)
[2017-11-25] MEDS: Aspirin EC TAB* 81 MG TAB.EC PO SCH (08:24)
[2017-11-25] MEDS: Acetaminophen TAB* 325 MG PO PRN (13:03)
[2017-11-25 13:11] VITALS: BP 127/78
== END 2017-11-25 14:31 | disposition home or self-care (01) | DRG 156 ==
LOC: ED 10:31 → MEDTELE 16:19 → OBSVTOIN 11-18 16:52
PROVIDERS: ADMIT Hospitalist; ATTEND Internal Medicine
DX: H93.3X1 Disorders of right acoustic nerve (principal); R42 Dizziness and giddiness; M19.90 Unspecified osteoarthritis, unspecified site; I25.10 Atherosclerotic heart disease of native coronary artery without angina pectoris; G43.909 Migraine, unspecified, not intractable, without status migrainosus; J45.909 Unspecified asthma, uncomplicated; L40.9 Psoriasis, unspecified; K21.9 Gastro-esophageal reflux disease without esophagitis; K58.9 Irritable bowel syndrome, unspecified; E53.8 Deficiency of other specified B group vitamins; E55.9 Vitamin D deficiency, unspecified; Z79.82 Long term (current) use of aspirin; Z79.899 Other long term (current) drug therapy; Z88.5 Allergy status to narcotic agent; Z88.0 Allergy status to penicillin; Z88.2 Allergy status to sulfonamides; Z88.8 Allergy status to other drugs, medicaments and biological substances; Z88.1 Allergy status to other antibiotic agents; Z91.030 Bee allergy status; Z91.040 Latex allergy status; Z82.49 Family history of ischemic heart disease and other diseases of the circulatory system; Z87.891 Personal history of nicotine dependence
CPT/HCPCS: 36415; 70496; 70498; 70551; 80048; 80053; 80061; 81003; 82306; 82542; 82607; 83036; 83605; 83735; 84207; 84443; 84484; 85025; 85610; 86140; 86340; 93005; 93306; 99284; A9270-GY; G0378; G8978-GP-CM; G8979-GP-CK; J0780; J1644; J3420; J3475; J7512; Q9967

== ENCOUNTER 2018-09-04 13:35 | Inpatient (IN) | payer MEDICARE, BC ==
[2018-09-04 14:05] LABS: ABS Basophils 0.1 10^3/ul (0-0.2); ABS Lymphocytes 0.7 10^3/ul (1.0-4.8); ABS Monocytes 0.5 10^3/ul (0-0.8); ABS Neutrophils 10.4 10^3/ul (1.5-7.7); Eosinophil % 0.4 %; Hematocrit 40 % (35-47); Hemoglobin 13.3 g/dL (12.0-16.0); Lymphocyte % 6.1 %; Mean Corpuscular HGB Conc 34 g/dL (31-36); Mean Corpuscular Hemoglobin 31 pg (27-31); Mean Corpuscular Volume 92 fL (80-97); Mean Platelet Volume 8.3 fL (7.4-10.4); Platelet Count 229 10^3/uL (150-450); Red Blood Count 4.32 10^6 /uL (3.70-4.87); Red Cell Distribution Width 13 % (10-15); White Blood Count 11.7 10^3/uL (3.5-10.8)
[2018-09-04 14:31] LABS: Albumin 4.3 g/dL (3.2-5.2); Albumin/Globulin Ratio 1.6 (1-3); BUN/Creatinine Ratio 10.7 (8-20); Calcium 9.4 mg/dL (8.6-10.3); EGFR African American 91.2 (>60); EGFR Non-African American 75.3 (>60); Globulin 2.7 g/dL (2-4); Potassium 3.7 mmol/L (3.5-5.0); Total Bilirubin 0.6 mg/dL (0.2-1.0)
--- NOTE | 2018-09-04 14:43 | ED ---
Abdominal Pain/Female - HPI Summary HPI Summary: This patient is a 77 year old F presenting to [facility] [place] accompanied by her with a chief complaint of ABD pain since 4 hours ago today. Pt was sitting in a chair watching television and noticed that when she took a deep breath, she felt ABD and back pain. When she got up, she developed clamminess and felt nauseous. Symptoms worsened to the point that every breathe hurt. Laying down on the couch did not alleviate her symptoms. Pt states her body felt a hot and burning sensation and that the pain is still present. Pt has hx of diverticulitis, stomach ulcers, and acid reflux. She drinks coke to settle her stomach and says that when she reached for her coke today, she felt her back muscles pull hard. She says she only eats a little bit because of her stomach problems. Pt states she does not smoke or drink. The patient rates the pain 7/10 in severity. Symptoms aggravated by movement. Symptoms alleviated by rest. Pt reports taking medication for her heart and stomach. Pt denies any swallowing pain, fever, chills, erythema of eyes, sore throat, CP, SOB, cough, vomiting, dysuria, hematuria, myalgia, edema, rash, or dizziness. Pt denies hx of blood clots or aneurysms in family. She was previously at [facility] [place] for vertigo in November 2018. - History of Current Complaint Chief Complaint: EDChestPainROMI Stated Complaint: CHEST PAIN Time Seen by Provider: 09/04/18 13:45 Hx Obtained From: Patient, Family/Consumer Analyst - Hx Last Menstrual Period: na ?: No Onset/Duration: Sudden Onset, Lasting Hours - 4, Still Present Timing: Hours - 4 Severity Initially: Severe Severity Currently: Severe Pain Intensity: 7 Pain Scale Used: 0-10 Numeric Character: Other: - pt describes her back pain as pulling her Aggravating Factor(s): Movement Alleviating Factor(s): Other: - rest Associated Signs and Symptoms: Positive: Diaphoresis, Back Pain, Nausea, Other: - positive - ABD pain. negative - swallowing pain, fever, chills, erythema of eyes, sore throat, CP, SOB, cough, vomiting, dysuria, hematuria, myalgia, edema , rash, or dizziness. Negative: Cough Allergies/Adverse Reactions: Allergies Allergy/AdvReac Type Severity Reaction Status Date / Time bee venom protein (honey bee) Allergy Severe Difficulty Verified 09/04/18 14:09 Breathing betamethasone Allergy Severe Blisters Verified 09/04/18 14:09 [From Diprolene] cefdinir Allergy Severe Unknown Verified 09/04/18 14:09 Reaction Details codeine Allergy Severe Blisters Verified 09/04/18 14:09 hydromorphone [From Dilaudid] Allergy Severe Anaphylatic Verified 09/04/18 14:09 Shock propylene glycol Allergy Severe Blisters Verified 09/04/18 14:09 [From Diprolene] Sulfa (Sulfonamide Allergy Severe Hives Verified 09/04/18 14:09 Antibiotics) adhesive tape Allergy Intermediate Rash Verified 09/04/18 14:09 ciprofloxacin [From Cipro] Allergy Intermediate Rash Verified 09/04/18 14:09 erythromycin base Allergy Intermediate See Comment Verified 09/04/18 14:09 latex Allergy Intermediate Rash Verified 09/04/18 14:09 nicotine Allergy Intermediate Unknown Verified 09/04/18 14:09 Reaction Details Opioids - Morphine Analogues Allergy Intermediate Rash Verified 09/04/18 14:09 Penicillins Allergy Intermediate Hives Verified 09/04/18 14:09 nalidixic acid [From NegGram] AdvReac Severe Vomiting Verified 09/04/18 14:09 ondansetron [From Zofran] AdvReac Severe Nausea And Verified 09/04/18 14:09 Vomiting pentazocine [From Talwin] AdvReac Severe Hallucinati Verified 09/04/18 22:43 ons meclizine AdvReac Intermediate Nausea Verified 09/04/18 14:09 nabumetone [From Relafen] AdvReac Intermediate Bleeding Verified 09/04/18 22:43 succinylcholine AdvReac Intermediate blood Verified 09/04/18 22:43 [From Anectine] pressure drop Asknlcu-Cvx-Bty Reductase AdvReac GI Upset Verified 09/04/18 14:09 Inhibitor Home Medications: Home Medications Diltiazem TAB* [Cardizem 30 MG Tab*] 30 mg PO BID 09/04/18 [History Confirmed ] Pantoprazole TAB * [Protonix TAB*] 40 mg PO DAILY 09/04/18 [History Confirmed ] PMH/Surg Hx/FS Hx/Imm Hx Previously Healthy: No Endocrine/Hematology History: Denies: Hx Diabetes, Hx Thyroid Disease Cardiovascular History: Reports: Hx Coronary Artery Disease - Angioplasty-years ago-[place], Hx Hypertension Denies: Hx Pacemaker/ICD, Other Cardiovascular Problems/Disorders Respiratory History: Denies: Hx Asthma, Hx Chronic Obstructive Pulmonary Disease (COPD), Other Respiratory Problems/Disorders GI History: Reports: Hx Gastroesophageal Reflux Disease, Hx Irritable Bowel, Hx Ulcer - history duodenal ulcers, Other GI Disorders - esophageal rings stretched , diverticulosis, history of diverticulitis Denies: Hx Hiatal Hernia History: Reports: Hx Kidney Infection - had prior to partial kidney removal- , Other Problems/Disorders - 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., UTIs Denies: Hx Renal Disease Musculoskeletal History: Reports: Hx Arthritis - thumbs, Hx Bursitis - history of, none recent, Other Musculoskeletal History - Fell 08/28-fractured right hand- hard brace on Sensory History: Reports: Hx Cataracts - Bilateral, Hx Contacts or Glasses - glasses Denies: Hx Glaucoma, Hx Hearing Aid Opthamlomology History: Reports: Hx Cataracts - Bilateral, Hx Contacts or Glasses - glasses Denies: Hx Glaucoma Neurological History: Reports: Hx Migraine - history of since hysterectomy, none recent Denies: Other Neuro Impairments/Disorders Psychiatric History: Denies: Hx Panic Disorder - Cancer History Cancer Type, Location and Year: Facial SCC with SAx revision - Surgical History Surgical History: Yes Surgery Procedure, Year, and Place: Angioplasty-2006. Partial colectomy -[id number]-[id number]. Partial Left Kidney removed-. HYSTERECTOMY. BILATERAL HIPS. BILATERAL SHOULDERS. CATARACTS. BREAST BIOPSY Hx Anesthesia Reactions: Yes - versed, demerol and lidocaine ok per pt Infectious Disease History: No Infectious Disease History: Reports: Hx Shingles - Denies: Hx Hepatitis, Hx Human Immunodeficiency Virus (HIV), Traveled Outside the [place] in Last 30 Days - Family History Known Family History: Positive: Cardiac Disease Family History: Cataract - Mother - Social History Alcohol Use: None Hx Substance Use: No Substance Use Type: Reports: None Hx Tobacco Use: Yes Smoking Status (MU): Former Smoker Length of Time of Smoking/Using Tobacco: 5 years Review of Systems Positive: Skin Diaphoresis. Negative: Fever, Chills Negative: Erythema ENT: Other - negative - swallowing pain Negative: Sore Throat Negative: Chest Pain Negative: Shortness Of Breath, Cough Positive: Abdominal Pain, Nausea. Negative: Vomiting Negative: dysuria, hematuria Musculoskeletal: Other - positive - back pain Negative: Myalgia, Edema Negative: Rash Neurological: Other - negative - dizziness All Other Systems Reviewed And Are Negative: Yes Physical Exam - Summary Physical Exam Summary: Constitutional: Well-developed, Well-nourished, Alert. (-) Distressed Skin: Warm, Dry HENT: Normocephalic; Atraumatic Eyes: Conjunctiva normal Neck: Musculoskeletal ROM normal neck. (-) JVD, (-) Stridor, (-) Tracheal deviation Cardio: Rhythm regular, rate normal, Heart sounds normal; Intact distal pulses; The pedal pulses are 2+ and symmetric. Radial pulses are 2+ and symmetric. (-) Murmur Pulmonary/Chest wall: Effort normal. (-) Respiratory distress, (-) Wheezes, (-) Rales Abd: Soft, Epigastric and RUQ tenderness , (-) Distension, (-) Guarding, (-) Rebound Musculoskeletal: (-) Edema Lymph: (-) Cervical adenopathy Neuro: Alert, Oriented x3 Psych: Mood and affect Normal Triage Information Reviewed: Yes Vital Signs On Initial Exam: Initial Vitals Temp Pulse Resp BP Pulse Ox 97.7 F 57 18 137/67 99 09/04/18 13:48 09/04/18 13:48 09/04/18 13:48 09/04/18 13:48 09/04/18 13:48 Vital Signs Reviewed: Yes Diagnostics - Vital Signs Vital Signs Temp Pulse Resp BP Pulse Ox 09/04/18 14:07 58 16 116/67 97 09/04/18 14:00 59 15 96 09/04/18 13:54 54 13 98 09/04/18 13:48 97.7 F 57 18 137/67 99 - Laboratory Lab Results: Lab Results 09/04/18 09/04/18 09/04/18 Range/Units 13:56 13:56 13:56 WBC 11.7 H (3.5-10.8) 10^3/uL RBC 4.32 (3.70-4.87) 10^6 /uL Hgb 13.3 (12.0-16.0) g/dL Hct 40 (35-47) % MCV 92 (80-97) fL MCH 31 (27-31) pg MCHC 34 (31-36) g/dL RDW 13 (10-15) % Plt Count 229 (150-450) 10^3/uL MPV 8.3 (7.4-10.4) fL Neut % (Auto) 88.9 % Lymph % (Auto) 6.1 % Sterling % (Auto) 4.1 % Eos % (Auto) 0.4 % Baso % (Auto) 0.5 % Absolute Neuts (auto) 10.4 H (1.5-7.7) 10^3/ul Absolute Lymphs (auto) 0.7 L (1.0-4.8) 10^3/ul Absolute Monos (auto) 0.5 (0-0.8) 10^3/ul Absolute Eos (auto) 0.0 (0-0.6) 10^3/ul Absolute Basos (auto) 0.1 (0-0.2) 10^3/ul Absolute Nucleated RBC 0.0 10^3/ul Nucleated RBC % 0.0 Sodium 137 (135-145) mmol/L Potassium 3.7 (3.5-5.0) mmol/L Chloride 104 (101-111) mmol/L Carbon Dioxide 23 (22-32) mmol/L Anion Gap 10 (2-11) mmol/L BUN 8 (6-24) mg/dL Creatinine 0.75 (0.51-0.95) mg/dL Est GFR ( Amer) 91.2 (>60) Est GFR (Non-Af Amer) 75.3 (>60) BUN/Creatinine Ratio 10.7 (8-20) Glucose 133 H (70-100) mg/dL Lactic Acid 1.4 (0.5-2.0) mmol/L Calcium 9.4 (8.6-10.3) mg/dL Total Bilirubin 0.60 (0.2-1.0) mg/dL AST 23 (13-39) U/L ALT 12 (7-52) U/L Alkaline Phosphatase 63 (34-104) U/L Troponin I 0.00 (<0.04) ng/mL Total Protein 7.0 (6.4-8.9) g/dL Albumin 4.3 (3.2-5.2) g/dL Globulin 2.7 (2-4) g/dL Albumin/Globulin Ratio 1.6 (1-3) Result Diagrams: 09/05/18 06:03 09/05/18 06:03 Lab Statement: Any lab studies that have been ordered have been reviewed, and results considered in the medical decision making process. - Radiology CXR Radiology Interpretation Completed By: Radiologist Summary of Radiographic Findings: IMPRESSION: NO ACTIVE CARDIOPULMONARY DISEASE IS NOTED. These findings were reviewed by Dr. Lugo. - Ultrasound Gallbladder Ultrasound Interpretation Completed By: Radiologist Summary of Ultrasound Findings: IMPRESSION: Small amount of pericholecystic fluid with suggestion of some biliary sludge. These findings were reviewed by Dr. Lugo. - EKG 1404 Cardiac Rate: Bradycardia - 57 BPM EKG Rhythm: Sinus Bradycardia Summary of EKG Findings: 57 BPM, sinus bradycardia, no STEMI Abdominal Pain Fem Course/Dx - Course Course Of Treatment: This patient is a 77 year old F presenting to [facility] [place] accompanied by her with a chief complaint of ABD pain since 4 hours ago today. Pt was sitting in a chair watching television and noticed that when she took a deep breath, she felt ABD and back pain. When she got up, she developed clamminess and felt nauseous. Symptoms worsened to the point that every breathe hurt. Laying down on the couch did not alleviate her symptoms. Pt states her body felt a hot and burning sensation and that the pain is still present. Pt has hx of diverticulitis, stomach ulcers, and acid reflux. She drinks coke to settle her stomach and says that when she reached for her coke today, she felt her back muscles pull hard. She says she only eats a little bit because of her stomach problems. Pt states she does not smoke or drink. The patient rates the pain 7/10 in severity. Symptoms aggravated by movement. Symptoms alleviated by rest. Pt reports taking medication for her heart and stomach. Pt denies any swallowing pain, fever, chills, erythema of eyes, sore throat, CP, SOB, cough, vomiting, dysuria, hematuria, myalgia, edema, rash, or dizziness. Pt denies hx of blood clots or aneurysms in family. She was previously at [facility] [place] [place] for vertigo in November 2018. Physical exam shows epigastric and RUQ tenderness. Lab results show WBC 11.7, absolute neuts 10.4, absolute lymphs 0.7, glucose 133. CXR IMPRESSION: NO ACTIVE CARDIOPULMONARY DISEASE IS NOTED. EKG at 1404 shows 57 BPM, sinus bradycardia, no STEMI. Gallbladder US IMPRESSION: Small amount of pericholecystic fluid with suggestion of some biliary sludge. During ED course , the pt was given Benadryl, fluids, morphine, and Xylocaine. This pt will be a signout from Dr. Lugo to Dr. Duggan at 0700 09/04/18 shift change pending Chest/Abdomen/Pelvis CTA results. - Diagnoses Provider Diagnoses: Abdominal pain Discharge - Sign-Out/Discharge Documenting (check all that apply): Sign-Out Patient Signing out patient TO: Kem Duggan - This pt will be a signout from Dr. Lugo to Dr. Duggan at 0700 09/04/18 shift change pending Chest/Abdomen/ Pelvis CTA results. Patient Received Moderate/Deep Sedation with Procedure: No - Discharge Plan Disposition: ADMITTED TO [facility] - Billing Disposition and Condition Disposition: Admitted to [facility] - Attestation Statements Document Initiated by Scribe: Yes Documenting Scribe: Rc Patrick Provider For Whom Edmundibe is Documenting (Include Credential): Dr. Alf Lugo MD Scribe Attestation: I, Rc Patrick scribed for Dr. Alf Lugo MD on 09/05/18 at 0821. Scribe Documentation Reviewed: Yes Provider Attestation: The documentation as recorded by the scribRc ram accurately reflects the service I personally performed and the decisions made by me, Dr. Alf Lugo MD Status of Scribe Document: Viewed
[2018-09-04] MEDS ORDERED: Morphine 4 MG/ML VIAL (1 ml) 4 MG/ML VIAL IV ONE (14:49)
[2018-09-04] MEDS ORDERED: NS 0.9% 500 ML* 500 ML IV ONE (14:49)
[2018-09-04] MEDS ORDERED: diPHENhydraMINE IV* 50 MG/ML 1 ml VIAL (BENADRYL) IV ONE (14:49)
[2018-09-04] MEDS ORDERED: Iodixanol* (CONTRAST) 320 MG/ML 100 ML SDV IV ONE (16:14)
[2018-09-04] MEDS ORDERED: Lidocaine 2% VISCOUS* 15 ML UDC PO ONE (19:08)
[2018-09-04 19:27] LABS: C Reactive Protein 2.63 mg/L (<8.01)
--- NOTE | 2018-09-04 20:18 | ED ---
Progress - Progress Note Progress Note: This patient was signed out from Dr. Lugo to Dr. Duggan at shift change at 1900 on 09/04/18, pending disposition, awaiting CT. CT reveals No pulmonary emboli. No additional findings to correlate with patient's symptomatology. 2. No aortic dissection, aneurysm, or rupture. The patients condition is stable and will be admitted. - Results/Orders Results/Orders: Chest/Abdomen/Pelvis CTA reveals, per radiologist IMPRESSION: 1. No pulmonary emboli. No additional findings to correlate with patient's symptomatology. 2. No aortic dissection, aneurysm, or rupture. ED physician has reviewed this report. Course/Dx - Course Course Of Treatment: This patient is a 77 year old F. Pt complains of CP, and RUQ pain. During Dr. Lugo physical exam pt had tenderness in RUQ radiating to back. Gallbladder US showing biliary sludge and pericholecystic fluid and dilation of duct is 0.8 cm, which is nml among elderly. However, pericholecystic and sludge is important. Pt will need to be admitted in hi-def scan. However, pt will first have a CT of abdomen to make sure there is no perforation. Pt has a Hx of peptic ulcer disease. If CT is nml, pt will be admitted to hospitalist.CT reveals No pulmonary emboli. No additional findings to correlate with patient's. symptomatology. 2. No aortic dissection, aneurysm , or rupture. The patients condition is stable and will be admitted. - Diagnoses Provider Diagnoses: Abdominal pain - Provider Notifications Discussed Care Of Patient With: Jerri Morrison Time Discussed With Above Provider: 20:53 Instructed by Provider To: Other - Discussed patient's case with Dr. Morrison, who accepts for admission. Discharge - Sign-Out/Discharge Documenting (check all that apply): Patient Departure - Admit All imaging exams completed and their final reports reviewed: Yes Patient Received Moderate/Deep Sedation with Procedure: No - Discharge Plan Disposition: ADMITTED TO [facility] - Attestation Statements Document Initiated by Scribe: Yes Documenting Scribe: Paige Coyle Provider For Whom Scribe is Documenting (Include Credential): Dr. Kem Duggan MD Scribe Attestation: Paige Santos, scribed for Dr. Kem Duggan MD on 09/05/18 at 0611. Status of Scribe Document: Ready
--- NOTE | 2018-09-04 23:55 | HP ---
CC: Dr. Stanford; Dr. Zeng * HISTORY AND PHYSICAL: DATE OF ADMISSION: 09/04/18 PRIMARY CARE PROVIDER: Dr. Stanford. CHIEF COMPLAINT: Epigastric pain. HISTORY OF PRESENT ILLNESS: Beatrice Michaels is a 77-year-old female with history of irritable bowel syndrome as well as esophageal stricture, status post dilatations, who presented to the hospital complaining of epigastric pain, nausea that occurred today before noon. The patient stated that today in the morning ate her usual breakfast of banana and milk. Approximately an hour later , she experienced sharp epigastric pain radiating to her back with a wave of nausea and dry heaving as well as diaphoresis and chills. That lasted for approximately an hour until she came into the emergency department for evaluation. Right now, she still complains of epigastric tenderness and pain. The nausea resolved. The CTA of the abdomen shows dilated common bile duct at 1 cm. Gallbladder ultrasound shows pericholecystic fluid and gallbladder sludge. She is going to be placed on overnight observation to evaluate for postoperative cholecystitis. PAST MEDICAL HISTORY: 1. History of osteoarthritis. 2. History of irritable bowel syndrome, diarrhea predominant. 3. History of coronary artery disease, status post angioplasty x2. 4. History of migraines. 5. History of asthma. 6. History of psoriasis. 7. Gastroesophageal reflux disease. 8. History of right hand trauma after a fall in August 2017, status post right hand surgery performed in [place] 3 weeks ago. 9. History of benign positional vertigo. 10. History of left partial nephrectomy. 11. History of bilateral cataract surgery. 12. Bilateral carpal tunnel releases. 13. History of hysterectomy. 14. History of partial colectomy for recurrent diverticulitis. MEDICATIONS: Include: 1. Protonix 40 mg daily. 2. Vitamin D3 2000 units daily. 3. Diltiazem 30 mg b.i.d. 4. Dicyclomine 10 mg b.i.d. 5. Vitamin B12 1000 mcg daily. 6. Aspirin 81 mg daily. 7. EpiPen on a p.r.n. basis. ALLERGIES: The patient has had multiple allergies, which include BEE VENOM, BETAMETHASONE, CEFDINIR, CODEINE, HYDROMORPHONE, PENTAZOCINE, PROPYLENE GLYCOL, SULFA, ADHESIVE TAPE, CIPROFLOXACIN, ERYTHROMYCIN, LATEX, RELAFEN, NICOTINE, OPIOIDS, and MORPHINE ANALOGUES. Please note that the patient received morphine IV in the emergency department without any marked side effects. PENICILLINS, SUCCINYLCHOLINE, NALIDIXIC ACID, ZOFRAN, MECLIZINE and STATINS. Please see the details of the patient's allergy and reaction to the medications in patient's computerized chart. FAMILY HISTORY: Mom, who at the age of 70 from CHF. SOCIAL HISTORY: The patient quit smoking in 1984. She rare drinks alcohol. 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 She is to her , who still is a director of a [employer] and works department of mathematics chair. Her , Ankur is the healthcare proxy. REVIEW OF SYSTEMS: Please see history of present illness. In addition to the above mentioned, the patient stated that she had a bout of diarrhea due to irritable bowel syndrome at the beginning of the week that resolved by now. She still complaints of epigastric pain. She denies any chest pain, shortness of breath, or fevers. All the remaining 12 systems were reviewed with the patient and were otherwise negative. PHYSICAL EXAMINATION GENERAL: The patient is a very pleasant 77-year-old female who is in no acute distress. Alert, awake, and oriented x3. VITAL SIGNS: Blood pressure of 139/75, heart rate of 49 and regular, respiratory rate 16, oxygen saturation 95% on room air, temperature of 97.7. HEENT: Head: Atraumatic, normocephalic. Eyes: Pupils are equal, reactive to light and accommodation. Oropharynx is clear. Mucosa moist. NECK: Supple. No JVD. No bruits bilaterally. RESPIRATORY: Clear to auscultation bilaterally. CARDIOVASCULAR: Regular rate and rhythm. No murmur. ABDOMEN: Soft, tender in the epigastric and right upper quadrant with no rebound, no guarding. Bowel sounds are present in all 4 quadrants. EXTREMITIES: There is no edema. Pulses are +2 bilaterally. No clubbing or cyanosis. NEUROLOGIC: On neuro evaluation, speech is clear. Cranial nerves II through XII are grossly intact. Motor strength is 5/5 bilaterally. SKIN: On evaluation of the skin, no ecchymotic areas or rashes noted. DIAGNOSTIC STUDIES/LAB DATA: Laboratory data showed white blood cell count 11.7 , hemoglobin 13.3, hematocrit 40, and platelets 229. Sodium 137, potassium 3.7 , chloride 104, carbon dioxide 23, BUN 10, creatinine 0.75. Liver function tests unremarkable. Troponin was 0 x3. Lipase is pending at the time of dictation. C-reactive protein was 2.6. The patient had a CT angiogram of the chest, abdomen and pelvis, which showed no pulmonary emboli, no aortic dissection. The abdomen part showed pericholecystic fluid, correlating with findings of ultrasound and no additional findings to suggest acute cholecystitis. There was no aortic dissection, aneurysmal rupture. Simple hepatic cyst. Diverticulosis coli. The patient also has a 1 cm common bile duct, it tapered at the pancreatic head. The patient's gallbladder ultrasound, impression: "Small amount of pericholecystic fluid with suggestion of some biliary sludge." At that point, the patient's common bile duct was measuring at 0.8 cm. The patient's EKG showed sinus bradycardia with heart rate of 57 beats per minute with no ST changes. Portable chest x-ray, impression: "No active cardiopulmonary disease." ASSESSMENT AND PLAN: 1. Epigastric pain with gallbladder sludge and common bile duct dilatation and some pericholecystic fluid. It is possible that the patient passed the gallbladder stone, although her LFTs do not indicate her common bile duct is dilated. At this point, I discussed with the patient use of empiric antibiotics versus waiting on observation. The patient has history of multiple allergies to multiple antibiotics. Last time she was given an antibiotic that she thought she could receive intravenously, she developed a reaction in her vein and she requests to have a PICC line placed if she needed to be placed on IV antibiotics. At this point, due to her very mild elevation of her white blood cells and CRP that is within normal limits, we elected to observe and monitor without antibiotics. She is going to be placed on clear liquid diet and gentle intravenous fluids. We will obtain an MRCP. A surgical consult will be requested in the morning. 2. For her DVT prophylaxis, the patient is going to be placed on heparin subcutaneously. 3. The patient's code status is full. Her surrogate is her . TIME SPENT: Approximately 75 minutes was spent on admission of this patient, more than half that time was spent [id number] with the patient during the interview and physical exam. [id number]/[facility] #: [id number] [facility] NETWORKNoé
[2018-09-05] MEDS: Morphine INJ* 2 MG/ML 1 ML SYRINGE (TWO MG - NEW SYRINGE VERSION) IV PRN ×2 (01:45→09:32)
[2018-09-05 06:24] LABS: ABS Eosinophils 0.1 10^3/ul (0-0.6); ABS Lymphocytes 1.2 10^3/ul (1.0-4.8); ABS Monocytes 0.4 10^3/ul (0-0.8); ABS Neutrophils 2.7 10^3/ul (1.5-7.7); Eosinophil % 3.2 %; Hematocrit 39 % (35-47); Hemoglobin 13.3 g/dL (12.0-16.0); Lymphocyte % 27.2 %; Mean Corpuscular HGB Conc 35 g/dL (31-36); Mean Corpuscular Hemoglobin 32 pg (27-31); Mean Corpuscular Volume 91 fL (80-97); Mean Platelet Volume 8.4 fL (7.4-10.4); Nucleated Red Blood Cells % 0.1; Platelet Count 197 10^3/uL (150-450); Red Blood Count 4.21 10^6 /uL (3.70-4.87); Red Cell Distribution Width 14 % (10-15); White Blood Count 4.5 10^3/uL (3.5-10.8)
[2018-09-05] MEDS: Heparin VIAL(*) 5000 UNITS/ML VIAL (FIVE THOUSAND) SUBCUT SCH ×3 (06:26→22:22)
[2018-09-05 06:56] LABS: Albumin 3.8 g/dL (3.2-5.2); Albumin/Globulin Ratio 1.7 (1-3); BUN/Creatinine Ratio 9.6 (8-20); Calcium 8.8 mg/dL (8.6-10.3); EGFR Non-African American 77.7 (>60); Globulin 2.2 g/dL (2-4); Potassium 3.7 mmol/L (3.5-5.0); Total Bilirubin 0.5 mg/dL (0.2-1.0)
[2018-09-05] MEDS: NS 0.9% 1000 ML** 1,000 ML IV SCH ×2 (07:00→17:46)
[2018-09-05] MEDS: Pantoprazole TAB * 40 MG TAB PO SCH (09:18)
[2018-09-05] MEDS: Diltiazem TAB* 30 MG PO SCH ×2 (09:18→22:19)
[2018-09-05] MEDS: Cyanocobalamin TAB* 500 MCG PO SCH (09:18)
--- NOTE | 2018-09-05 11:40 | CONS ---
CONSULTATION REPORT: DATE OF CONSULTATION: 09/05/18 SERVICE: General Surgery. ATTENDING SURGEON: Nilda Wu MD REQUESTING PHYSICIAN: Jerri Morrison MD REASON FOR CONSULTATION: Epigastric and right upper quadrant abdominal pain. HISTORY OF PRESENT ILLNESS: Ms. Michaels is a very pleasant 77-year-old female with a history of coronary artery disease, gastroesophageal reflux disease, peptic ulcer disease who presented to the emergency room last night with complaints of 1 day of epigastric and right upper quadrant abdominal pain. The patient states that it began yesterday morning after eating a banana for breakfast. She states that prior to this she was in her normal state of health. She states that the pain is higher in the epigastrium and that it radiates to her back between her scapula. She states that she has never had pain like this before and that movement exacerbated the pain. She said that she also developed some nausea, however, she does have chronic baseline nausea ( although this was more prolonged). She became very clammy and cold and she felt like she had to pass out, and therefore came to the emergency room. Her emergency room workup was significant for a right upper quadrant ultrasound as well as a CT scan that showed some gallbladder sludge as well as some pericholecystic fluid. Her common bile duct was also noted to be 1 cm, however , no gallstones were identified. This morning, the patient states that she still has abdominal pain, especially when she gets up and out of bed and she still has some nausea. She has not had any fevers. She has not had any emesis. PAST MEDICAL HISTORY: 1. Osteoarthritis. 2. Irritable bowel syndrome. 3. Coronary artery disease, status post angioplasty x2. 4. Migraines. 5. Asthma. 6. Psoriasis. 7. Gastroesophageal reflux disease. 8. Vertigo. 9. Left partial nephrectomy. 10. Cataract. PAST SURGICAL HISTORY: 1. Partial colectomy for diverticulitis. 2. Hysterectomy. 3. Cataract surgery. 4. Left partial nephrectomy. ALLERGIES: The patient has multiple allergies per her medical records. These include BEE VENOM, BETAMETHASONE, CEFDINIR, CODEINE, HYDROMORPHONE, PENTAZOCINE , PROPYLENE GLYCOL, SULFA, ADHESIVE TAPES, CIPROFLOXACIN, ERYTHROMYCIN, LATEX, RELAFEN, NICOTINE, OPIOIDS, MORPHINE, PENICILLIN, SUCCINYLCHOLINE, NALIDIXIC ACID, ZOFRAN, MECLIZINE, STATINS. MEDICATIONS: 1. Protonix. 2. Vitamin D. 3. Diltiazem. 4. Dicyclomine. 5. Vitamin B12. 6. Aspirin 81 mg p.o. daily. 7. EpiPen as needed. FAMILY HISTORY: Mother of congestive heart failure. SOCIAL HISTORY: The patient is a former smoker. She used to work at a bank. She lives at home with her . REVIEW OF SYSTEMS: Negative except for abdominal pain and nausea. PHYSICAL EXAM: Vital Signs: Temperature is 97.4, pulse is 48, respiratory rate is 18, O2 sat is 98% O2 on room air, blood pressure is 132/69. General: She is a well-appearing woman, lying very comfortably in bed, in no apparent distress, conversing easily. HEENT: Normocephalic, atraumatic. Cardiovascular : Regular rate and rhythm. Respiratory: Clear to auscultation bilaterally. Abdomen: Soft, nondistended, tender in the right upper quadrant and epigastrium , nontender in the other quadrants. She has a well-healed left flank incision from her nephrectomy many years ago and she also has a lower vertical midline incision from her hysterectomy. Extremities: No edema. DIAGNOSTIC STUDIES/LAB DATA: Laboratory values from 09/05/18: White blood cell count is 4.5, hemoglobin 13.3, hematocrit 39, platelets are 197. Sodium is 141, potassium is 3.7, chloride is 108, BUN 7, creatinine 0.73, glucose 82. Total bilirubin is 0.5, AST is 20, ALT is 13, alkaline phosphatase is 64. Radiology: Gallbladder ultrasound- a small amount of pericholecystic fluid versus some suggestion of biliary sludge. CT chest, abdomen, and pelvis- no pulmonary emboli, no aortic dissection, pericholecystic fluid correlating with findings on ultrasound, and no additional findings of acute cholecystitis, no aortic dissection, aneurysmal rupture, small hepatic cyst, diverticulosis. ASSESSMENT AND PLAN: Ms. Michaels is a 77-year-old female with a history of coronary artery disease, status post angioplasty; peptic ulcer disease; diverticulitis, status post sigmoid resection who presents with 1 day of epigastric and right upper quadrant abdominal pain. Her leukocytosis has now normalized today. She has remained afebrile. However, she does have findings of pericholecystic fluid on her imaging as well as tenderness in the right upper quadrant. She does have other sources of possible gastrointestinal pain, but from her history, she states that this is very distinct from her peptic ulcer disease and gastroesophageal reflux disease. A HIDA scan is pending to further ascertain whether or not this may be acute cholecystitis. I have discussed with the patient that it is quite possible that despite having normal labs and no fevers that she may be experiencing biliary colic from gallbladder sludge or possibly acute cholecystitis, in which case we would recommend a laparoscopic cholecystectomy. I discussed with her the risks, benefits, and alternatives of surgery. I discussed that the risks include, but are not limited to bleeding, infection, and injury to nearby structures. Surgery will follow up with her imaging that has been ordered for today and discuss with her further if surgery is recommended. For now, she should remain n.p.o. She had not been given antibiotics in the emergency room given that she has many antibiotic allergies. She does state that she can receive Invanz through a peripheral IV. However, at this point, she does not have leukocytosis and no fevers, so antibiotics are not required at this point. [id number]/[facility] #: [id number] [facility]ITALNoé
--- NOTE | 2018-09-05 14:51 | PN ---
<Sourav Manjarrez - Last Filed: 09/05/18 14:41> Subjective Date of Service: 09/05/18 Interval History: 77 F presents with c/o Epigastric pain radiating to back and shoulder blades and nausea for 1 day. She had no fever, vomiting or diarrhea. She was feeling fine today. Her pain was decreased. Objective Active Medications: Acetaminophen (Tylenol Tab*) 650 mg PO Q4H PRN PRN Reason: FEVER/PAIN Cyanocobalamin (Vitamin B12 Tab*) 1,000 mcg PO DAILY [facility] Last Admin: 09/05/18 09:18 Dose: 1,000 mcg Diltiazem HCl (Cardizem Tab*) 30 mg PO BID [facility] Last Admin: 09/05/18 09:18 Dose: 30 mg Heparin Sodium (Porcine) (Heparin Vial(*)) 5,000 units SUBCUT Q8HR [facility] Last Admin: 09/05/18 06:26 Dose: 5,000 units Sodium Chloride (Ns 0.9% 1000 Ml) 1,000 mls @ 75 mls/hr IV PER RATE [facility] Last Admin: 09/05/18 07:00 Dose: 75 mls/hr Morphine Sulfate (Morphine Inj (Syringe))*) 2 mg IV Q2H PRN PRN Reason: PAIN Last Admin: 09/05/18 09:32 Dose: 2 mg Pantoprazole Sodium (Protonix Tab*) 40 mg PO DAILY [facility] Last Admin: 09/05/18 09:18 Dose: 40 mg Vital Signs - 8 hr 09/05/18 09/05/18 09/05/18 09:32 09:55 11:02 Temperature 97.7 F 97.5 F Pulse Rate 58 50 Respiratory 18 14 20 Rate Blood Pressure 126/63 116/58 (mmHg) O2 Sat by Pulse 97 99 Oximetry Oxygen Devices in Use Now: None Exam: Patient was lying on a bed and not in acute distress. HEENT: Normocephalic, Atraumatic. Heart: Normal heart sound heard. Lungs: Normal vesicular sound heard. Abdomen: Soft, Non-distended. Tenderness in RUQ and epigastric region. Rebound tenderness -ve. Murohy sign +ve. Normal bowel sound heard. Extremities: No any swellinf or rash Neuro: Alert, conscious and oriented. Able to move all 4 extremities. Result Diagrams: 09/05/18 06:03 09/05/18 06:03 Additional Lab and Data: Lab Results 09/04/18 09/04/18 09/04/18 Range/Units 13:56 13:56 13:56 WBC 11.7 H (3.5-10.8) 10^3/uL RBC 4.32 (3.70-4.87) 10^6 /uL Hgb 13.3 (12.0-16.0) g/dL Hct 40 (35-47) % MCV 92 (80-97) fL MCH 31 (27-31) pg MCHC 34 (31-36) g/dL RDW 13 (10-15) % Plt Count 229 (150-450) 10^3/uL MPV 8.3 (7.4-10.4) fL Neut % (Auto) 88.9 % Lymph % (Auto) 6.1 % [place] % (Auto) 4.1 % Eos % (Auto) 0.4 % Baso % (Auto) 0.5 % Absolute Neuts (auto) 10.4 H (1.5-7.7) 10^3/ul Absolute Lymphs (auto) 0.7 L (1.0-4.8) 10^3/ul Absolute Monos (auto) 0.5 (0-0.8) 10^3/ul Absolute Eos (auto) 0.0 (0-0.6) 10^3/ul Absolute Basos (auto) 0.1 (0-0.2) 10^3/ul Absolute Nucleated RBC 0.0 10^3/ul Nucleated RBC % 0.0 Sodium 137 (135-145) mmol/L Potassium 3.7 (3.5-5.0) mmol/L Chloride 104 (101-111) mmol/L Carbon Dioxide 23 (22-32) mmol/L Anion Gap 10 (2-11) mmol/L BUN 8 (6-24) mg/dL Creatinine 0.75 (0.51-0.95) mg/dL Est GFR ( Amer) 91.2 (>60) Est GFR (Non-Af Amer) 75.3 (>60) BUN/Creatinine Ratio 10.7 (8-20) Glucose 133 H (70-100) mg/dL Lactic Acid 1.4 (0.5-2.0) mmol/L Calcium 9.4 (8.6-10.3) mg/dL Total Bilirubin 0.60 (0.2-1.0) mg/dL AST 23 (13-39) U/L ALT 12 (7-52) U/L Alkaline Phosphatase 63 (34-104) U/L Troponin I 0.00 (<0.04) ng/mL Total Protein 7.0 (6.4-8.9) g/dL Albumin 4.3 (3.2-5.2) g/dL Globulin 2.7 (2-4) g/dL Albumin/Globulin Ratio 1.6 (1-3) Assess/Plan/Problems-Billing Assessment: 77 F with past medical history of CAD(s/p angioplasty), IBS, GERD, Migraine, multiple bowel surgeries, b/l carpel tunnel releases presented with complain of epigastric pain with radiation to back and shoulder blades for 1 day. SHe also had nausea but no vomiting and fever. She was found to have acute cholesystitis with biliary sludge. Plan is to observe her and if anything significant may proceed with surgery. - Patient Problems (1) Acute cholecystitis without calculus Current Visit: Yes Status: Acute Code(s): K81.0 - ACUTE CHOLECYSTITIS SNOMED Code(s): 12668497 Comment: Symptomatic but improving. Supporive treatment. Allergic to multiple drugs. Pain managed with tylenol and morphine prn. Monitor for symptoms; if worsening or anything significant then plan to do surgery. (2) IBS (irritable bowel syndrome) Current Visit: No Status: Acute Comment: Asymptomatic. Bentyl put on hold. (3) CAD (coronary artery disease) Current Visit: No Status: Acute Code(s): I25.10 - ATHSCL HEART DISEASE OF [place] CORONARY ARTERY W/O ANG PCTRS SNOMED Code(s): 27012065 Comment: Hold aspirin for surgery(if needed). (4) DVT prophylaxis Current Visit: No Status: Acute Code(s): DBH2543 - SNOMED Code(s): 927327555 Comment: - Heparin SubQ (5) Full code status Current Visit: No Status: Acute Code(s): Z78.9 - OTHER SPECIFIED HEALTH STATUS SNOMED Code(s): 691117829 Comment: Status and Disposition: Medicine inpatient. Attending: Clarissa Mondragon <Clarissa Mondragon - Last Filed: 09/06/18 15:41> Objective Active Medications: Acetaminophen (Tylenol Tab*) 650 mg PO Q4H PRN PRN Reason: FEVER/PAIN Last Admin: 09/06/18 01:55 Dose: 650 mg Cyanocobalamin (Vitamin B12 Tab*) 1,000 mcg PO DAILY [facility] Last Admin: 09/06/18 07:39 Dose: 1,000 mcg Dicyclomine HCl (Bentyl Cap*) 10 mg PO BID [facility] Diltiazem HCl (Cardizem Tab*) 30 mg PO BID [facility] Last Admin: 09/06/18 07:39 Dose: 30 mg Enoxaparin Sodium (Lovenox(*)) 40 mg SUBCUT BEDTIME [facility] Morphine Sulfate (Morphine Inj (Syringe))*) 2 mg IV Q2H PRN PRN Reason: PAIN Last Admin: 09/06/18 07:39 Dose: 2 mg Pantoprazole Sodium (Protonix Tab*) 40 mg PO DAILY [facility] Last Admin: 09/06/18 07:39 Dose: 40 mg Vital Signs - 8 hr 09/06/18 09/06/18 09/06/18 08:00 08:40 11:51 Temperature 97.4 F Pulse Rate 60 Respiratory 16 14 18 Rate Blood Pressure 123/49 (mmHg) O2 Sat by Pulse 100 Oximetry 09/06/18 15:26 Temperature 97.8 F Pulse Rate 63 Respiratory 18 Rate Blood Pressure 137/70 (mmHg) O2 Sat by Pulse 100 Oximetry Result Diagrams: 09/06/18 11:17 09/06/18 11:17 Assess/Plan/Problems-Billing Assessment: 77W with h/o diverticulitis s/p partial colectomy, IBS, esophageal stricture s/ p dilatations, GERD, CAD s/p PCI, OA, asthma, migraines, psoriasis, who presents with nausea and epigastric pain radiating to R shoulder, found with CTA with mildly dilated CBD, ultrasound with pericholecystic fluid, and HIDA with patent cystic duct. Patient is afebrile, with soft abdomen, and mild leukocytosis resolved without intervention. Unclear what process is causing patient's symptoms, but surgery unlikely to intervene. - Patient Problems (1) Acute cholecystitis without calculus Comment: Symptomatic but improving. Unclear if acute cholecystitis at this point , without fevers, leukocytosis, or clear infectious process on imaging. - will advance diet today - pending final read of delayed (3 hr) HIDA scan - surgical intervention unlikely, will consult GI if symptoms not improved and pt not able to tolerate PO (2) IBS (irritable bowel syndrome) Comment: - cont home dicyclomine bid (3) CAD (coronary artery disease) Current Visit: No Status: Acute Code(s): I25.10 - ATHSCL HEART DISEASE OF [place] CORONARY ARTERY W/O ANG PCTRS SNOMED Code(s): 21740356 Comment: Hold aspirin for surgery(if needed). (4) DVT prophylaxis Comment: - enoxaparin subq daily (5) Full code status Current Visit: Yes Status: Acute Code(s): Z78.9 - OTHER SPECIFIED HEALTH STATUS SNOMED Code(s): 477111609 Comment: Attestation Documenting Resident: Loki Supervising Physician: Alanna Attestation: This service has been performed in part by a resident under the direction of a teaching physician.IAlanna, performed the service, or was physically present during the critical, or yoo portions of the service, furnished by the resident. I participated in the management of the patient.
[2018-09-05] MEDS: Acetaminophen TAB* 325 MG PO PRN (17:52)
[2018-09-06] MEDS: Acetaminophen TAB* 325 MG PO PRN (01:55)
[2018-09-06] MEDS: Heparin VIAL(*) 5000 UNITS/ML VIAL (FIVE THOUSAND) SUBCUT SCH ×2 (06:05→14:19)
[2018-09-06] MEDS: Morphine INJ* 2 MG/ML 1 ML SYRINGE (TWO MG - NEW SYRINGE VERSION) IV PRN (07:39)
[2018-09-06] MEDS: Cyanocobalamin TAB* 500 MCG PO SCH (07:39)
[2018-09-06] MEDS: Pantoprazole TAB * 40 MG TAB PO SCH (07:39)
[2018-09-06] MEDS: Diltiazem TAB* 30 MG PO SCH (07:39)
[2018-09-06] MEDS: NS 0.9% 1000 ML** 1,000 ML IV SCH (07:44)
[2018-09-06 11:30] LABS: ABS Eosinophils 0.1 10^3/ul (0-0.6); ABS Lymphocytes 1.3 10^3/ul (1.0-4.8); ABS Monocytes 0.3 10^3/ul (0-0.8); ABS Neutrophils 2.9 10^3/ul (1.5-7.7); Hematocrit 40 % (35-47); Hemoglobin 13.5 g/dL (12.0-16.0); Lymphocyte % 27.3 %; Mean Corpuscular HGB Conc 34 g/dL (31-36); Mean Corpuscular Hemoglobin 31 pg (27-31); Mean Corpuscular Volume 92 fL (80-97); Mean Platelet Volume 8.4 fL (7.4-10.4); Nucleated Red Blood Cells % 0.1; Platelet Count 183 10^3/uL (150-450); Red Blood Count 4.31 10^6 /uL (3.70-4.87); Red Cell Distribution Width 13 % (10-15); White Blood Count 4.6 10^3/uL (3.5-10.8)
[2018-09-06 11:42] LABS: Albumin 3.7 g/dL (3.2-5.2); Albumin/Globulin Ratio 1.5 (1-3); BUN/Creatinine Ratio 7.8 (8-20); Calcium 8.7 mg/dL (8.6-10.3); EGFR African American 109.5 (>60); EGFR Non-African American 90.5 (>60); Globulin 2.5 g/dL (2-4); Potassium 3.8 mmol/L (3.5-5.0); Total Bilirubin 0.5 mg/dL (0.2-1.0); Total Protein 6.2 g/dL (6.4-8.9)
--- NOTE | 2018-09-06 12:12 | PN ---
Progress Note - Progress Note Date of Service: 09/06/18 SOAP: Subjective: Pain today just below the umbilicus-still somewhat epigastric No N/V and tolerated some liquids Passing flatus Objective: Temp Pulse Resp BP Pulse Ox 97.4 F 56 14 114/61 97 09/06/18 07:09 09/06/18 07:09 09/06/18 08:40 09/06/18 07:09 09/06/18 07:09 Intake & Output 09/04/18 09/05/18 09/06/18 09/07/18 06:59 06:59 06:59 06:59 Intake Total 1425 2965 Balance 1425 2965 Weight 115 lb 6.4 oz 115 lb 6.4 oz Intake: IV Fluids 925 2785 NS (0.9%) 425 1835 IVPB 500 Oral 0 180 Other: # Voids 1 1 PEX: Comfortable Abd is soft and non-distended. Bowel sounds are present. Mild tenderness geovanna- umbilically, no mass, no guarding, No right upper abdominal pain Laboratory Results - last 24 hr 09/06/18 09/06/18 11:17 11:17 WBC 4.6 RBC 4.31 Hgb 13.5 Hct 40 MCV 92 MCH 31 MCHC 34 RDW 13 Plt Count 183 MPV 8.4 Neut % (Auto) 63.7 Lymph % (Auto) 27.3 [place] % (Auto) 6.0 Eos % (Auto) 2.0 Baso % (Auto) 1.0 Absolute Neuts (auto) 2.9 Absolute Lymphs (auto) 1.3 Absolute Monos (auto) 0.3 Absolute Eos (auto) 0.1 Absolute Basos (auto) 0.0 Absolute Nucleated RBC 0.0 Nucleated RBC % 0.1 Sodium 137 Potassium 3.8 Chloride 106 Carbon Dioxide 22 Anion Gap 9 BUN 5 L Creatinine 0.64 Est GFR ( Amer) 109.5 Est GFR (Non-Af Amer) 90.5 BUN/Creatinine Ratio 7.8 L Glucose 61 L Calcium 8.7 Total Bilirubin 0.50 AST 16 ALT 10 Alkaline Phosphatase 64 Total Protein 6.2 L Albumin 3.7 Globulin 2.5 Albumin/Globulin Ratio 1.5 MRCP reviewed HIDA-rapid filling of GB, rules out acute cholecytitis. However, on delayed image tracer does not appear to pass into small bowel. this portion of study was not read last night by radiology. I discussed with Dr. Pike today and he will read and add addendum to report. Assessment: Abd pain-I don't believe she has acute cholecystitis-no fever, normal WBC and normal LFT's LFT's today remain normal. Not certain of reason why tracer would not be in small bowel. Plan: No operative intervention Await delayed HIDA reading Diet as tolerated Consider GI opinion
--- NOTE | 2018-09-06 15:04 | PN ---
Subjective Date of Service: 09/06/18 Interval History: No events overnight. Labs without leukocytosis or signs of biliary obstruction on LFTs. Patient reports pain is moving from epigastrum to lower abdomen, more like her typical IBS pain. Has appetite and would like to try to eat. Objective Active Medications: Acetaminophen (Tylenol Tab*) 650 mg PO Q4H PRN PRN Reason: FEVER/PAIN Last Admin: 09/06/18 01:55 Dose: 650 mg Cyanocobalamin (Vitamin B12 Tab*) 1,000 mcg PO DAILY [facility] Last Admin: 09/06/18 07:39 Dose: 1,000 mcg Dicyclomine HCl (Bentyl Cap*) 10 mg PO BID [facility] Diltiazem HCl (Cardizem Tab*) 30 mg PO BID [facility] Last Admin: 09/06/18 07:39 Dose: 30 mg Enoxaparin Sodium (Lovenox(*)) 40 mg SUBCUT BEDTIME [facility] Morphine Sulfate (Morphine Inj (Syringe))*) 2 mg IV Q2H PRN PRN Reason: PAIN Last Admin: 09/06/18 07:39 Dose: 2 mg Pantoprazole Sodium (Protonix Tab*) 40 mg PO DAILY [facility] Last Admin: 09/06/18 07:39 Dose: 40 mg Vital Signs - 8 hr 09/06/18 09/06/18 09/06/18 07:09 07:39 08:00 Temperature 97.4 F Pulse Rate 56 Respiratory 16 16 16 Rate Blood Pressure 114/61 (mmHg) O2 Sat by Pulse 97 Oximetry 09/06/18 09/06/18 08:40 11:51 Temperature 97.4 F Pulse Rate 60 Respiratory 14 18 Rate Blood Pressure 123/49 (mmHg) O2 Sat by Pulse 100 Oximetry Oxygen Devices in Use Now: None Appearance: frail appearing elderly woman in NAD, nontoxic, friendly and conversant Ears/Nose/Mouth/Throat: Clear Oropharnyx, Mucous Membranes Moist Neck: NL Appearance and Movements; NL JVP Respiratory: Symmetrical Chest Expansion and Respiratory Effort, Clear to Auscultation Cardiovascular: RRR Abdominal: NL Sounds; No Tenderness; No Distention, No Hepatosplenomegaly Extremities: No Edema Skin: No Rash or Ulcers Neurological: Alert and Oriented x 3 Result Diagrams: 09/06/18 11:17 09/06/18 11:17 Additional Lab and Data: Lab Results 09/04/18 09/04/18 09/04/18 Range/Units 13:56 13:56 13:56 WBC 11.7 H (3.5-10.8) 10^3/uL RBC 4.32 (3.70-4.87) 10^6 /uL Hgb 13.3 (12.0-16.0) g/dL Hct 40 (35-47) % MCV 92 (80-97) fL MCH 31 (27-31) pg MCHC 34 (31-36) g/dL RDW 13 (10-15) % Plt Count 229 (150-450) 10^3/uL MPV 8.3 (7.4-10.4) fL Neut % (Auto) 88.9 % Lymph % (Auto) 6.1 % Nolan % (Auto) 4.1 % Eos % (Auto) 0.4 % Baso % (Auto) 0.5 % Absolute Neuts (auto) 10.4 H (1.5-7.7) 10^3/ul Absolute Lymphs (auto) 0.7 L (1.0-4.8) 10^3/ul Absolute Monos (auto) 0.5 (0-0.8) 10^3/ul Absolute Eos (auto) 0.0 (0-0.6) 10^3/ul Absolute Basos (auto) 0.1 (0-0.2) 10^3/ul Absolute Nucleated RBC 0.0 10^3/ul Nucleated RBC % 0.0 Sodium 137 (135-145) mmol/L Potassium 3.7 (3.5-5.0) mmol/L Chloride 104 (101-111) mmol/L Carbon Dioxide 23 (22-32) mmol/L Anion Gap 10 (2-11) mmol/L BUN 8 (6-24) mg/dL Creatinine 0.75 (0.51-0.95) mg/dL Est GFR ( Amer) 91.2 (>60) Est GFR (Non-Af Amer) 75.3 (>60) BUN/Creatinine Ratio 10.7 (8-20) Glucose 133 H (70-100) mg/dL Lactic Acid 1.4 (0.5-2.0) mmol/L Calcium 9.4 (8.6-10.3) mg/dL Total Bilirubin 0.60 (0.2-1.0) mg/dL AST 23 (13-39) U/L ALT 12 (7-52) U/L Alkaline Phosphatase 63 (34-104) U/L Troponin I 0.00 (<0.04) ng/mL Total Protein 7.0 (6.4-8.9) g/dL Albumin 4.3 (3.2-5.2) g/dL Globulin 2.7 (2-4) g/dL Albumin/Globulin Ratio 1.6 (1-3) Assess/Plan/Problems-Billing Assessment: 77W with h/o diverticulitis s/p partial colectomy, IBS, esophageal stricture s/ p dilatations, GERD, CAD s/p PCI, OA, asthma, migraines, psoriasis, who presents with nausea and epigastric pain radiating to R shoulder, found with CTA with mildly dilated CBD, ultrasound with pericholecystic fluid, and HIDA with patent cystic duct. Patient is afebrile, with soft abdomen, and mild leukocytosis resolved without intervention. Unclear what process is causing patient's symptoms, but surgery unlikely to intervene. - Patient Problems (1) Acute cholecystitis without calculus Comment: Symptomatic but improving. Unclear if acute cholecystitis at this point , without fevers, leukocytosis, or clear infectious process on imaging. - will advance diet today - pending final read of delayed (3 hr) HIDA scan - surgical intervention unlikely, will consult GI if symptoms not improved and pt not able to tolerate PO (2) IBS (irritable bowel syndrome) Comment: - cont home dicyclomine bid (3) CAD (coronary artery disease) Current Visit: No Status: Acute Code(s): I25.10 - ATHSCL HEART DISEASE OF [place] CORONARY ARTERY W/O ANG PCTRS SNOMED Code(s): 79481570 Comment: Hold aspirin for surgery(if needed). (4) DVT prophylaxis Comment: - enoxaparin subq daily (5) Full code status Current Visit: Yes Status: Acute Code(s): Z78.9 - OTHER SPECIFIED HEALTH STATUS SNOMED Code(s): 751865566 Comment: Status and Disposition: Medicine inpatient.
[2018-09-06 15:39] VITALS: BP 137/70
[2018-09-06] MEDS ORDERED: Dicyclomine CAP* 10 MG PO SCH (18:00)
--- NOTE | 2018-09-06 18:51 | DS ---
CC: Dr. Blas Stanford; Dr. Jong Ernst * DISCHARGE SUMMARY: DATE OF ADMISSION: 09/04/18 DATE OF DISCHARGE: 09/06/18 PRIMARY CARE PHYSICIAN: Dr. Blas Stanford. PRIMARY DIAGNOSIS: Right upper quadrant pain of unknown etiology. SECONDARY DIAGNOSES: 1. History of diverticulitis, status post partial colectomy. 2. Irritable bowel syndrome. 3. History of esophageal stricture, status post dilatation. 4. Gastroesophageal reflux disease. 5. Coronary artery disease, status post PCI. 6. Osteoarthritis. CONSULTS: Surgery, Dr. Jong Ernst. DISCHARGE MEDICATIONS: 1. Dicyclomine 10 mg with meals. 2. Pantoprazole 40 mg daily. 3. Diltiazem 30 mg twice a day. 4. Aspirin 81 mg daily. 5. Vitamin D3 2000 International Units daily. 6. Vitamin B12 1000 mcg daily. HISTORY OF PRESENT ILLNESS: Ms. Michaels is a 77-year-old woman with IBS, history of esophageal strictures, history of episodes of diverticulitis, who presents complaining of epigastric pain and nausea that started on the morning of presentation. She states she had her usual breakfast of banana and milk and approximately 1 hour later she experienced sharp epigastric pain that radiated to her right shoulder and back, that was associated with a wave of nausea and dry heaving, as well as diaphoresis and chills. She stated that lasted for approximately 1 hour and then she came to the emergency department for an evaluation. HOSPITAL COURSE: In the ER, the patient complained of epigastric tenderness, but her nausea had resolved. CT of the abdomen showed a mildly dilated CBD and gallbladder ultrasound was concerning for pericholecystic fluid with gallbladder sludge. She was not given IV antibiotics at that time as she had multiple antibiotic allergies and was without a fever. However, her labs were significant for mild leukocytosis to 11.1 without a left shift. She was seen and evaluated by our surgical team who were reassured by her abdominal exam and LFTs without evidence of obstruction. Given the symptomatology concerning for gallbladder pathology with pericholecystic fluid seen on ultrasound and possibly dilated CBD, a HIDA scan was recommended before the decision to take to operating room. However, HIDA scan showed a patent cystic duct. She also underwent an MRCP, which showed a small amount of free intraperitoneal fluid adjacent to the gallbladder and liver and a hepatic cyst without gallstones seen. Her cystic duct was noted to be tortuous and slightly prominent. On day 2 of admission, the patient was tolerating food as usual and her symptoms had completely resolved, except for her chronic and well known crampy lower abdominal pain associated with eating. So, the patient preferred to return home as she had GI followup scheduled for the following week. PERTINENT STUDIES AND LABS: WBC 4.6. LFTs unremarkable for 3 days. Chest, abdomen, and pelvis CTA with no pulmonary emboli, no aortic dissection, pericholecystic fluid correlating with findings on ultrasound, and no additional findings of acute cholecystitis or diverticulosis; simple hepatic cyst without followup imaging recommended. Gallbladder ultrasound with small amount of pericholecystic fluid with suggestion of some biliary sludge. MRCP with small amount of free intraperitoneal fluid adjacent to the gallbladder and liver with hepatic cyst approximately 1.5 x 1.1 cm in size. No intrahepatic ductal distention is seen. The common hepatic duct is mildly prominent, measuring 0.8 cm in diameter with a tortuous and slightly prominent cystic duct, which inserts more inferior than typical on the extrahepatic ducts , without gallstone seen. There is no evidence for cholelithiasis. Hepatobiliary nuclear medicine scan with prompt uptake of the radiotracer by the hepatocytes and excretion into the biliary tree at 20 minutes. Reflux in the gallbladder is noted at 40 minutes. A delayed HIDA scan at 3 hours is pending. DISCHARGE PLAN: The patient already has regularly scheduled followup with her primary care physician and GI doctors. No medication changes were made to her home medication list. She was educated on return precautions, which include, but are not limited to recurrence of severe abdominal pain with new quality or new symptom of fever and chills or inability to pass gas or stool. She is to resume a healthy diet, low in processed foods, and activity as tolerated. DISPOSITION: Home. CONDITION: Good. TIME SPENT: Approximately 60 minutes were spent on discharge of this patient, more than half of which was spent on care coordination at bedside, for interview and exam. [id number]/[facility] #: [id number] GARTH
[2018-09-06] MEDS ORDERED: Enoxaparin(*) 40 MG/0.4 ML SYR SUBCUT SCH (21:00)
== END 2018-09-06 17:10 | disposition home or self-care (01) | DRG 392 ==
LOC: ED 13:35 → MED 22:12 → OBSVTOIN 09-05 11:00
PROVIDERS: ADMIT Internal Medicine; ATTEND Internal Medicine
DX: R10.11 Right upper quadrant pain (principal); K21.9 Gastro-esophageal reflux disease without esophagitis; I25.10 Atherosclerotic heart disease of native coronary artery without angina pectoris; M19.90 Unspecified osteoarthritis, unspecified site; D72.829 Elevated white blood cell count, unspecified; K58.0 Irritable bowel syndrome with diarrhea; G43.909 Migraine, unspecified, not intractable, without status migrainosus; J45.909 Unspecified asthma, uncomplicated; K27.9 Peptic ulcer, site unspecified, unspecified as acute or chronic, without hemorrhage or perforation; L40.9 Psoriasis, unspecified; Z98.61 Coronary angioplasty status; Z79.82 Long term (current) use of aspirin; Z79.899 Other long term (current) drug therapy; Z91.030 Bee allergy status; Z91.040 Latex allergy status; Z88.5 Allergy status to narcotic agent; Z88.0 Allergy status to penicillin; Z88.2 Allergy status to sulfonamides; Z88.8 Allergy status to other drugs, medicaments and biological substances; Z91.048 Other nonmedicinal substance allergy status; Z82.49 Family history of ischemic heart disease and other diseases of the circulatory system
CPT/HCPCS: 36415; 71045; 71275; 74177; 74181; 76376; 76705; 78226; 80053; 83605; 83690; 84484; 85025; 86140; 93005; 99284; A9270-GY; A9537; J1200; J1644; J2270; Q9967